=== PATIENT | female | born 1980 | race Caucasian/White ===

== ENCOUNTER 2018-11-12 11:14 | Emergency (ER) | payer OTHER, SELFPAY ==
[2018-11-12 11:14] VITALS: BP 123/92; PULSE 77; RESP 20; TEMP 36.8; O2SAT 100; BMI 36.6
--- NOTE | 2018-11-12 11:18 | DI.RAD.S_ITS ---
PROCEDURE: XR CHEST 1V INDICATIONS: chest pain TECHNIQUE: One view of the chest was acquired. COMPARISON: [facility], CR, XR CHEST 1 VIEW, 09/17/2018, 4:44. FINDINGS: Surgical changes and devices: None. Lungs and pleura: No pleural effusions or pneumothorax. Lungs are clear. Mediastinum: Mediastinal contours appear normal. Heart size is normal. Bones and chest wall: No suspicious bony lesions. Overlying soft tissues appear unremarkable. IMPRESSION: Negative chest. No acute cardiopulmonary process is evident. Dictated by: Otis Pelayo M.D. on 11/12/2018 at 11:14 Approved by: Otis Pelayo M.D. on 11/12/2018 at 11:14
[2018-11-12 11:30] VITALS: BP 115/73; PULSE 74; RESP 20; O2SAT 98
[2018-11-12 11:42] LABS: Add Manual Diff / Slide Review NO; Eosinophils Percent Auto 1.1 % (2-4); Hematocrit 35.2 % (36-46); Hemoglobin 11.5 g/dL (12.0-16.0); Lymphocytes Percent Auto 20.7 % (25-40); Mean Corpuscular HGB Conc 32.6 % (30-36); Monocytes Percent Auto 6.2 % (3-14); Neutrophils Absolute Auto 6200 /uL (1500-7000); Platelet Count 414 X10^3/uL (150-400); Red Blood Cell Count 4.24 X10^6/uL (4.0-5.2); Red Cell Distribution Width 15.7 % (11.6-14.8); White Blood Cell Count 8.7 X10^3/uL (4.5-11.0)
--- NOTE | 2018-11-12 11:47 | ED.CHESTPAIN ---
HPI - Chest Pain General Chief Complaint: Chest Pain Stated Complaint: Abdominal Pain/Chest Pain Time Seen by Provider: 11/12/18 11:42 Source: patient and family () Mode of arrival: EMS Limitations: no limitations History of Present Illness HPI narrative: This is a 38-year-old female who comes in with complaint of chest pain. Patient states she has had chest discomfort for about a month. It seems to always be there, nothing seems to really make it better or worse. She has had some issues with heartburn although she states this feels a little bit different. She was skiing at [facility] a month where they evaluated her. They changed her Prilosec to Nexium and doubled the dose which has helped. Patient states that today she was at her therapy appointment when she noticed that her heart rate was off with her apple watch. Patient states that they looked today and she was concerned because she has had 1 episode of SVT in the past. Patient did not feel similar to when she had the SVT. She denies any other shortness of breath, she has not had any fevers, no cold cough or congestion. She has swelling in her lower extremities but states it is just her sock line it is not anything more extreme than that. She has help felt fatigued for the last couple months but nothing new with the short term. She has not had any nausea or vomiting, no diaphoresis today. She states about 1:00 a.m. this morning she felt gassy and bloated. And day before that she had some very large bowel movements. States that besides the 1 episode of SVT she has not had any other cardiac arrhythmias. She has not followed up with cardiology at any point. She states that she has a family history with an aunt and 1 or 2 cousins who have either SVT or Ycuzd-Vvydggflr-Twcbh. We did discuss that having a definitive diagnosis for Lswoa-Fnozhgdok-Telzv is important and she should follow up with Cardiology with that family history. Related Data Home Medications Medication Instructions Recorded Confirmed dextroamphetamine-amphetamine 15 mg PO TID 11/12/18 11/12/18 duloxetine 40 mg PO DAILY 11/12/18 11/12/18 hydroxyzine pamoate 50 mg PO BEDTIME PRN 11/12/18 11/12/18 lamotrigine 100 mg PO DAILY 11/12/18 11/12/18 oxycodone-acetaminophen 1 tab PO QID PRN 11/12/18 11/12/18 propranolol 60 mg PO QPM 11/12/18 11/12/18 Allergies Allergy/AdvReac Type Severity Reaction Status Date / Time No Known Drug Allergies Allergy Verified 11/12/18 11:50 Review of Systems Review of Systems ROS Unobtainable: All systems reviewed & are unremarkable except as noted in HPI and below Constitutional Denies chills, Denies excessive sweating, Reports fatigue, Denies fever(s), Denies lethargy and Denies weakness ENT Ears, Nose, Mouth, and Throat: Denies nasal congestion Cardiovascular Reports chest pain, Denies chest pain with activity, Denies diaphoresis, Denies syncope, Denies rapid heart rate, Reports edema (mild), Denies irregular heart rhythm, Denies lightheadedness, Denies radiating jaw, neck or arm pain, Denies palpitations, Denies dyspnea, Denies dyspnea on exertion and Denies orthopnea Respiratory Denies change in phlegm color, Denies chest congestion, Denies cough, Denies dyspnea, Denies dyspnea on exertion, Denies stridor and Denies wheezing Gastrointestinal Gastrointestinal: Denies abdominal pain, Denies change in bowel habits, Denies diarrhea, Denies nausea and Denies vomiting Genitourinary Denies urinary frequency, Denies dysuria and Denies urinary urgency Musculoskeletal Denies back pain Neurologic Denies syncope and Denies weakness Endocrine Denies excessive sweating, Reports fatigue and Denies palpitations Allergic/Immunologic Denies wheezing PFSH Medical History SVT (supraventricular tachycardia) (Acute) Social History Smoking Status: Current every day smoker Exam Narrative Exam Narrative: GENERAL: Alert and oriented x three, obese, well-appearing female in mild distress. Patient appears anxious. HEENT: Head normocephalic, atraumatic, EOMI, pupils reactive, face symmetric, moist mucous membranes NECK: Supple, full range of motion CARDIOVASCULAR: Regular rate and rhythm without murmurs, rubs or gallops. No edema bilateral lower extremities. RESPIRATORY: Breath sounds equal bilaterally, no wheezes rales or rhonchi. ABDOMEN: Soft, nontender. Normoactive bowel sounds all 4 quadrants. No guarding or rebound, rigidity, no mass : No CVA tenderness EXTREMITIES: Normal range of motion, no clubbing or edema. Neurovascularly intact NEUROLOGICAL: Cranial nerves II through XII grossly intact. Moving all extremities SKIN: Warm, dry, no petechiae, no rashes or lesions. Initial Vital Signs Initial Vital Signs: Vital Signs Temperature 98.3 F 11/12/18 11:14 Pulse Rate 77 11/12/18 11:14 Respiratory Rate 20 11/12/18 11:14 Blood Pressure 123/92 H 11/12/18 11:14 Pulse Oximetry 100 11/12/18 11:14 Scores HEART Score Heart Score history: Slightly Suspicious Heart Score EKG: Non-Specific repolarization disturbance Heart Score Age: < 45 years old Heart Score risk factors: No known risk factors Heart Score troponin: < or = to normal limit Heart Score Total: 1 Course Orders Ordered: ED Orders 11/12/18 11:18 XR chest 1V Stat EKG-12 Lead Stat 11/12/18 11:30 Complete Blood Count AUTO DIFF Stat Comprehensive Metabolic Panel Stat Lipase Stat Partial Thromboplastin Time Stat Prothrombin Time INR Stat Troponin & CK Cardiac Panel Stat 11/12/18 12:34 Ictotest Urine Stat Urine Microscopic Stat Vital Signs - 8 hr 11/12/18 12:00 11/12/18 12:30 11/12/18 13:00 Pulse Rate 73 73 68 Respiratory Rate 26 H 22 22 Blood Pressure Blood Pressure [Left Arm] 123/84 128/65 120/72 Pulse Oximetry 98 100 99 11/12/18 13:38 Pulse Rate 73 Respiratory Rate 20 Blood Pressure 120/72 Blood Pressure [Left Arm] Pulse Oximetry 100 MDM - Chest Pain Lab Data Attestation: I reviewed the patient's lab results. Result diagrams: 11/12/18 11:30 11/12/18 11:30 Lab Results 11/12/18 11/12/18 11/12/18 Range/Units 11:30 11:30 11:30 WBC 8.7 (4.5-11.0) X10^3/uL RBC 4.24 (4.0-5.2) X10^6/uL Hgb 11.5 L (12.0-16.0) g/dL Hct 35.2 L (36-46) % MCV 83.0 (80-100) fL MCH 27.0 (26-34) PG MCHC 32.6 (30-36) % RDW 15.7 H (11.6-14.8) % Plt Count 414 H (150-400) X10^3/uL Neut % (Auto) 71.0 (50-75) % Lymph % (Auto) 20.7 L (25-40) % [place] % (Auto) 6.2 (3-14) % Eos % (Auto) 1.1 L (2-4) % Baso % (Auto) 1.0 (0-2) % Neut # (Auto) 6200 (8313-7676) /uL PT 9.9 L (10.1-12.7) SECONDS INR 0.9 (0.9-1.3) APTT 27 (26.4-36.2) SECONDS Sodium 137 (137-145) mmol/L Potassium 4.2 (3.4-5.1) mmol/L Chloride 100 (98-107) mmol/L Carbon Dioxide 27 (22-32) mmol/L BUN 11 (7-17) mg/dL Creatinine 0.70 (0.52-1.04) mg/dL Estimated GFR > 60.0 (>60) mL/min BUN/Creatinine Ratio 15.7 (6-22) Glucose 103 H (70-100) mg/dL Calcium 9.1 (8.4-10.2) mg/dL Total Bilirubin 0.4 (0.2-1.3) mg/dL AST 30 (14-36) IU/L ALT 53 H (9-52) IU/L Alkaline Phosphatase 87 (38-126) U/L Total Creatine Kinase 60 (30-135) U/L CK-MB (CK-2) TNP CK-MB (CK-2) Rel Index TNP Troponin I < 0.012 (0.01-0.034) ng/mL Total Protein 7.1 (6.3-8.2) g/dL Albumin 4.3 (3.5-5.0) g/dL Globulin 2.8 (1.7-4.1) g/dL Albumin/Globulin Ratio 1.5 (1.0-2.8) Lipase 87 (23-300) U/L Urine Ictotest (Negative) Urine RBC (0-5/HPF) Urine WBC (0-5/HPF) Ur Squamous Epith Cells Urine Bacteria (None) Ur Culture Indicated? Micro UA Comment 11/12/18 Range/Units 12:34 WBC (4.5-11.0) X10^3/uL RBC (4.0-5.2) X10^6/uL Hgb (12.0-16.0) g/dL Hct (36-46) % MCV (80-100) fL MCH (26-34) PG MCHC (30-36) % RDW (11.6-14.8) % Plt Count (150-400) X10^3/uL Neut % (Auto) (50-75) % Lymph % (Auto) (25-40) % [place] % (Auto) (3-14) % Eos % (Auto) (2-4) % Baso % (Auto) (0-2) % Neut # (Auto) (2092-6657) /uL PT (10.1-12.7) SECONDS INR (0.9-1.3) APTT (26.4-36.2) SECONDS Sodium (137-145) mmol/L Potassium (3.4-5.1) mmol/L Chloride (98-107) mmol/L Carbon Dioxide (22-32) mmol/L BUN (7-17) mg/dL Creatinine (0.52-1.04) mg/dL Estimated GFR (>60) mL/min BUN/Creatinine Ratio (6-22) Glucose (70-100) mg/dL Calcium (8.4-10.2) mg/dL Total Bilirubin (0.2-1.3) mg/dL AST (14-36) IU/L ALT (9-52) IU/L Alkaline Phosphatase (38-126) U/L Total Creatine Kinase (30-135) U/L CK-MB (CK-2) CK-MB (CK-2) Rel Index Troponin I (0.01-0.034) ng/mL Total Protein (6.3-8.2) g/dL Albumin (3.5-5.0) g/dL Globulin (1.7-4.1) g/dL Albumin/Globulin Ratio (1.0-2.8) Lipase (23-300) U/L Urine Ictotest Negative (Negative) Urine RBC 0-1/hpf (0-5/HPF) Urine WBC 0-1/hpf (0-5/HPF) Ur Squamous Epith Cells 1-5 /hpf Urine Bacteria Moderate (10-30) H (None) Ur Culture Indicated? Cult not indicated Micro UA Comment Not Reportable Point of Care Testing Test Results Negative Urine Dip Bedside Urine Glucose Negative Bedside Urine Bilirubin + 1 Bedside Urine Ketone - Negative Urine Specific [place] 1.030 Bedside Urine Occult Blood - Negative Bedside Urine pH 6.0 Bedside Urine Protein +/- 15 Bedside Urine Urobilinogen - Negative Bedside Urine Nitrite - Negative Bedside Urine Leukocytes - Negative Esterase Imaging Data Chest x-ray: Radiologist's impression: [address] [address] XRay Report Signed Patient: Kavitha Ruiz MR#: [id number] : 1980 Acct:[id number] Age/Sex: 38 / F Date of Service: 11/12/18 Loc: ED Accession Number: [id number] Procedure: XR chest 1V Ordering Provider: Sarah Mcelroy D.O. PROCEDURE: XR CHEST 1V INDICATIONS: chest pain TECHNIQUE: One view of the chest was acquired. COMPARISON: [facility], , XR CHEST 1 VIEW, 09/17/2018, 4:44. FINDINGS: Surgical changes and devices: None. Lungs and pleura: No pleural effusions or pneumothorax. Lungs are clear. Mediastinum: Mediastinal contours appear normal. Heart size is normal. Bones and chest wall: No suspicious bony lesions. Overlying soft tissues appear unremarkable. IMPRESSION: Negative chest. No acute cardiopulmonary process is evident. Dictated by: Otis Pelayo M.D. on 11/12/2018 at 11:14 Approved by: Otis Pelayo M.D. on 11/12/2018 at 11:14 ECG Data Attestation: I personally reviewed and interpreted this ECG as follows: Prior ECG tracings: not available for review ([facility] sent a written report. ) MDM Narrative Medical decision making narrative: Time patient has description of chest pain that has been going on for a prolonged period of time. Her most recent episode has been constant without any resolution and she has negative EKG and troponin she has had significant issues with heartburn but states that has actually improved and has increased her Nexium. We did discuss she has a history of SVT. I reviewed the rhythm from her apple watch on her phone. It appears to be similar 20 artifact there does not appear to be any significant arrhythmias patient has had a normal rhythm here with telemetry as well as on her EKG. She is not sure but thinks her family members may have some history of Eyeyv-Ffdiyirfl-Wisdv. EKG today does not show any changes consistent with this but did discuss that these are 2 very different Um electrical conduction issues and she should follow up with a geophysics professor to get a definitive diagnosis. We discussed the reasons and patient states that she will follow up. Plan for outpatient follow-up is patient is low risk with her heart score and her description of signs and symptoms makes my suspicion for cardiac cause is low. Discharge Plan Departure Patient Disposition: Home Clinical Impression: Chest pain Discharge Date/Time: 11/12/18 13:39 Interventions: ED Discharge Assessment Last Done: 11/12/18 13:38 Instructions: DI for Atypical Chest Pain Activity Restrictions/Additional Instructions: Follow up with cardiology regarding your past history of SVT and family history of Oerx-Mqnqqkyft-Brktj. Call to make an appointment. Continue your home medications as prescribed. Return to ER for new or worsening symptoms, shortness of breath, persistent vomiting, passing out, fast persistent heart beat or other new or concerning symptoms. Prescriptions: No Action hydroxyzine pamoate 50 mg capsule 50 mg PO BEDTIME PRN (Reason: unknown) RF: 0 dextroamphetamine-amphetamine 15 mg tablet 15 mg PO TID RF: 0 oxycodone-acetaminophen 7.5-325 mg tablet 1 tab PO QID PRN (Reason: pain) RF: 0 propranolol 20 mg tablet 60 mg PO QPM RF: 0 lamotrigine 100 mg tablet 100 mg PO DAILY RF: 0 duloxetine 40 mg capsule,delayed release(DR/EC) 40 mg PO DAILY RF: 0 Referrals: Diana Low MD [Physician] -
[2018-11-12 11:48] LABS: INR 0.9 (0.9-1.3); Prothrombin Time 9.9 SECONDS (10.1-12.7)
[2018-11-12 11:49] LABS: PTT Partial Thromboplastin Tim 27 SECONDS (26.4-36.2)
[2018-11-12 11:50] LABS: Alanine Aminotransferase 53 IU/L (9-52); Albumin 4.3 g/dL (3.5-5.0); Albumin Globulin Ratio 1.5 (1.0-2.8); Alkaline Phosphatase 87 U/L (38-126); Aspartate Aminotransferase 30 IU/L (14-36); BUN Creatinine Ratio 15.7 (6-22); Bilirubin Total 0.4 mg/dL (0.2-1.3); Blood Urea Nitrogen 11 mg/dL (7-17); Calcium 9.1 mg/dL (8.4-10.2); Carbon Dioxide 27 mmol/L (22-32); Chloride 100 mmol/L (98-107); Creatine Kinase 60 U/L (30-135); Estimated Glomerular Filt Rate > 60.0 mL/min (>60); Globulin 2.8 g/dL (1.7-4.1); Glucose 103 mg/dL (70-100); HEMOLYSIS < 15 (0-50); Lipase 87 U/L (23-300); Potassium 4.2 mmol/L (3.4-5.1); Sodium 137 mmol/L (137-145); Total Protein 7.1 g/dL (6.3-8.2)
[2018-11-12 12:00] VITALS: BP 123/84; PULSE 73; RESP 26; O2SAT 98
[2018-11-12 12:04] LABS: Troponin I < 0.012 ng/mL (0.01-0.034)
--- NOTE | 2018-11-12 12:13 | ED_ITS ---
HPI - Chest Pain General Chief Complaint: Chest Pain Stated Complaint: Abdominal Pain/Chest Pain Time Seen by Provider: 11/12/18 11:42 Source: patient and family () Mode of arrival: EMS Limitations: no limitations History of Present Illness HPI narrative: This is a 38-year-old female who comes in with complaint of chest pain. Patient states she has had chest discomfort for about a month. It seems to always be there, nothing seems to really make it better or worse. She has had some issues with heartburn although she states this feels a little bit different. She was skiing at [facility] a month where they evaluated her. They changed her Prilosec to Nexium and doubled the dose which has helped. Patient states that today she was at her therapy appointment when she noticed that her heart rate was off with her apple watch. Patient states that they looked today and she was concerned because she has had 1 episode of SVT in the past. Patient did not feel similar to when she had the SVT. She denies any other shortness of breath, she has not had any fevers, no cold cough or congestion. She has swelling in her lower extremities but states it is just her sock line it is not anything more extreme than that. She has help felt fatigued for the last couple months but nothing new with the short term. She has not had any nausea or vomiting, no diaphoresis today. She states about 1: 00 a.m. this morning she felt gassy and bloated. And day before that she had some very large bowel movements. States that besides the 1 episode of SVT she has not had any other cardiac arrhythmias. She has not followed up with cardiology at any point. She states that she has a family history with an aunt and 1 or 2 cousins who have either SVT or Rdneh-Rhzzpipkf-Ykcsv. We did discuss that having a definitive diagnosis for Jzkqc-[id number]-Jvjka is important and she should follow up with Cardiology with that family history. Related Data Home Medications Medication Instructions Recorded Confirmed dextroamphetamine-amphetamine 15 mg PO TID 11/12/18 11/12/18 duloxetine 40 mg PO DAILY 11/12/18 11/12/18 hydroxyzine pamoate 50 mg PO BEDTIME PRN 11/12/18 11/12/18 lamotrigine 100 mg PO DAILY 11/12/18 11/12/18 oxycodone-acetaminophen 1 tab PO QID PRN 11/12/18 11/12/18 propranolol 60 mg PO QPM 11/12/18 11/12/18 Allergies Allergy/AdvReac Type Severity Reaction Status Date / Time No Known Drug Allergies Allergy Verified 11/12/18 11:50 Review of Systems Review of Systems ROS Unobtainable: All systems reviewed & are unremarkable except as noted in HPI and below Constitutional Denies chills, Denies excessive sweating, Reports fatigue, Denies fever(s), Denies lethargy and Denies weakness ENT Ears, Nose, Mouth, and Throat: Denies nasal congestion Cardiovascular Reports chest pain, Denies chest pain with activity, Denies diaphoresis, Denies syncope, Denies rapid heart rate, Reports edema (mild), Denies irregular heart rhythm, Denies lightheadedness, Denies radiating jaw, neck or arm pain, Denies palpitations, Denies dyspnea, Denies dyspnea on exertion and Denies orthopnea Respiratory Denies change in phlegm color, Denies chest congestion, Denies cough, Denies dyspnea, Denies dyspnea on exertion, Denies stridor and Denies wheezing Gastrointestinal Gastrointestinal: Denies abdominal pain, Denies change in bowel habits, Denies diarrhea, Denies nausea and Denies vomiting Genitourinary Denies urinary frequency, Denies dysuria and Denies urinary urgency Musculoskeletal Denies back pain Neurologic Denies syncope and Denies weakness Endocrine Denies excessive sweating, Reports fatigue and Denies palpitations Allergic/Immunologic Denies wheezing PFSH Medical History SVT (supraventricular tachycardia) (Acute) Social History Smoking Status: Current every day smoker Exam Narrative Exam Narrative: GENERAL: Alert and oriented x three, obese, well-appearing female in mild distress. Patient appears anxious. HEENT: Head normocephalic, atraumatic, EOMI, pupils reactive, face symmetric, moist mucous membranes NECK: Supple, full range of motion CARDIOVASCULAR: Regular rate and rhythm without murmurs, rubs or gallops. No edema bilateral lower extremities. RESPIRATORY: Breath sounds equal bilaterally, no wheezes rales or rhonchi. ABDOMEN: Soft, nontender. Normoactive bowel sounds all 4 quadrants. No guarding or rebound, rigidity, no mass : No CVA tenderness EXTREMITIES: Normal range of motion, no clubbing or edema. Neurovascularly intact NEUROLOGICAL: Cranial nerves II through XII grossly intact. Moving all extremities SKIN: Warm, dry, no petechiae, no rashes or lesions. Initial Vital Signs Initial Vital Signs: Vital Signs Temperature 98.3 F 11/12/18 11:14 Pulse Rate 77 11/12/18 11:14 Respiratory Rate 20 11/12/18 11:14 Blood Pressure 123/92 H 11/12/18 11:14 Pulse Oximetry 100 11/12/18 11:14 Scores HEART Score Heart Score history: Slightly Suspicious Heart Score EKG: Non-Specific repolarization disturbance Heart Score Age: < 45 years old Heart Score risk factors: No known risk factors Heart Score troponin: < or = to normal limit Heart Score Total: 1 Course Orders Ordered: ED Orders 11/12/18 11:18 XR chest 1V Stat EKG-12 Lead Stat 11/12/18 11:30 Complete Blood Count AUTO DIFF Stat Comprehensive Metabolic Panel Stat Lipase Stat Partial Thromboplastin Time Stat Prothrombin Time INR Stat Troponin & CK Cardiac Panel Stat 11/12/18 12:34 Ictotest Urine Stat Urine Microscopic Stat Vital Signs - 8 hr 11/12/18 12:00 11/12/18 12:30 11/12/18 13:00 Pulse Rate 73 73 68 Respiratory Rate 26 H 22 22 Blood Pressure Blood Pressure [Left Arm] 123/84 128/65 120/72 Pulse Oximetry 98 100 99 11/12/18 13:38 Pulse Rate 73 Respiratory Rate 20 Blood Pressure 120/72 Blood Pressure [Left Arm] Pulse Oximetry 100 MDM - Chest Pain Lab Data Attestation: I reviewed the patient's lab results. Result diagrams: 11/12/18 11:30 11/12/18 11:30 Lab Results 11/12/18 11/12/18 11/12/18 Range/Units 11:30 11:30 11:30 WBC 8.7 (4.5-11.0) X10^3/uL RBC 4.24 (4.0-5.2) X10^6/uL Hgb 11.5 L (12.0-16.0) g/dL Hct 35.2 L (36-46) % MCV 83.0 (80-100) fL MCH 27.0 (26-34) PG MCHC 32.6 (30-36) % RDW 15.7 H (11.6-14.8) % Plt Count 414 H (150-400) X10^3/uL Neut % (Auto) 71.0 (50-75) % Lymph % (Auto) 20.7 L (25-40) % [place] % (Auto) 6.2 (3-14) % Eos % (Auto) 1.1 L (2-4) % Baso % (Auto) 1.0 (0-2) % Neut # (Auto) 6200 (9493-6590) /uL PT 9.9 L (10.1-12.7) SECONDS INR 0.9 (0.9-1.3) APTT 27 (26.4-36.2) SECONDS Sodium 137 (137-145) mmol/L Potassium 4.2 (3.4-5.1) mmol/L Chloride 100 (98-107) mmol/L Carbon Dioxide 27 (22-32) mmol/L BUN 11 (7-17) mg/dL Creatinine 0.70 (0.52-1.04) mg/dL Estimated GFR > 60.0 (>60) mL/min BUN/Creatinine Ratio 15.7 (6-22) Glucose 103 H (70-100) mg/dL Calcium 9.1 (8.4-10.2) mg/dL Total Bilirubin 0.4 (0.2-1.3) mg/dL AST 30 (14-36) IU/L ALT 53 H (9-52) IU/L Alkaline Phosphatase 87 (38-126) U/L Total Creatine Kinase 60 (30-135) U/L CK-MB (CK-2) TNP CK-MB (CK-2) Rel Index TNP Troponin I < 0.012 (0.01-0.034) ng/mL Total Protein 7.1 (6.3-8.2) g/dL Albumin 4.3 (3.5-5.0) g/dL Globulin 2.8 (1.7-4.1) g/dL Albumin/Globulin Ratio 1.5 (1.0-2.8) Lipase 87 (23-300) U/L Urine Ictotest (Negative) Urine RBC (0-5/HPF) Urine WBC (0-5/HPF) Ur Squamous Epith Cells Urine Bacteria (None) Ur Culture Indicated? Micro UA Comment 11/12/18 Range/Units 12:34 WBC (4.5-11.0) X10^3/uL RBC (4.0-5.2) X10^6/uL Hgb (12.0-16.0) g/dL Hct (36-46) % MCV (80-100) fL MCH (26-34) PG MCHC (30-36) % RDW (11.6-14.8) % Plt Count (150-400) X10^3/uL Neut % (Auto) (50-75) % Lymph % (Auto) (25-40) % [place] % (Auto) (3-14) % Eos % (Auto) (2-4) % Baso % (Auto) (0-2) % Neut # (Auto) (6581-3635) /uL PT (10.1-12.7) SECONDS INR (0.9-1.3) APTT (26.4-36.2) SECONDS Sodium (137-145) mmol/L Potassium (3.4-5.1) mmol/L Chloride (98-107) mmol/L Carbon Dioxide (22-32) mmol/L BUN (7-17) mg/dL Creatinine (0.52-1.04) mg/dL Estimated GFR (>60) mL/min BUN/Creatinine Ratio (6-22) Glucose (70-100) mg/dL Calcium (8.4-10.2) mg/dL Total Bilirubin (0.2-1.3) mg/dL AST (14-36) IU/L ALT (9-52) IU/L Alkaline Phosphatase (38-126) U/L Total Creatine Kinase (30-135) U/L CK-MB (CK-2) CK-MB (CK-2) Rel Index Troponin I (0.01-0.034) ng/mL Total Protein (6.3-8.2) g/dL Albumin (3.5-5.0) g/dL Globulin (1.7-4.1) g/dL Albumin/Globulin Ratio (1.0-2.8) Lipase (23-300) U/L Urine Ictotest Negative (Negative) Urine RBC 0-1/hpf (0-5/HPF) Urine WBC 0-1/hpf (0-5/HPF) Ur Squamous Epith Cells 1-5 /hpf Urine Bacteria Moderate (10-30) H (None) Ur Culture Indicated? Cult not indicated Micro UA Comment Not Reportable Point of Care Testing Test Results Negative Urine Dip Bedside Urine Glucose Negative Bedside Urine Bilirubin + 1 Bedside Urine Ketone - Negative Urine Specific [place] 1.030 Bedside Urine Occult Blood - Negative Bedside Urine pH 6.0 Bedside Urine Protein +/- 15 Bedside Urine Urobilinogen - Negative Bedside Urine Nitrite - Negative Bedside Urine Leukocytes - Negative Esterase Imaging Data Chest x-ray: Radiologist's impression: [address] [address] XRay Report Signed Patient: Kavitha Ruiz MR#: [id number] : 1980 Acct:[id number] Age/Sex: 38 / F Date of Service: 11/12/18 Loc: ED Accession Number: [id number] Procedure: XR chest 1V Ordering Provider: Sarah Mcelroy D.O. PROCEDURE: XR CHEST 1V INDICATIONS: chest pain TECHNIQUE: One view of the chest was acquired. COMPARISON: [facility], , XR CHEST 1 VIEW, 09/17/2018, 4:44. FINDINGS: Surgical changes and devices: None. Lungs and pleura: No pleural effusions or pneumothorax. Lungs are clear. Mediastinum: Mediastinal contours appear normal. Heart size is normal. Bones and chest wall: No suspicious bony lesions. Overlying soft tissues appear unremarkable. IMPRESSION: Negative chest. No acute cardiopulmonary process is evident. Dictated by: Otis Pelayo M.D. on 11/12/2018 at 11:14 Approved by: Otis Pelayo M.D. on 11/12/2018 at 11:14 ECG Data Attestation: I personally reviewed and interpreted this ECG as follows: Prior ECG tracings: not available for review ([facility] sent a written report. ) MDM Narrative Medical decision making narrative: Time patient has description of chest pain that has been going on for a prolonged period of time. Her most recent episode has been constant without any resolution and she has negative EKG and troponin she has had significant issues with heartburn but states that has actually improved and has increased her Nexium. We did discuss she has a history of SVT. I reviewed the rhythm from her apple watch on her phone. It appears to be similar 20 artifact there does not appear to be any significant arrhythmias patient has had a normal rhythm here with telemetry as well as on her EKG. She is not sure but thinks her family members may have some history of Artur- Parkinson-White. EKG today does not show any changes consistent with this but did discuss that these are 2 very different Um electrical conduction issues and she should follow up with a furnace door tender to get a definitive diagnosis. We discussed the reasons and patient states that she will follow up. Plan for outpatient follow-up is patient is low risk with her heart score and her description of signs and symptoms makes my suspicion for cardiac cause is low. Discharge Plan Departure Patient Disposition: Home Clinical Impression: Chest pain Discharge Date/Time: 11/12/18 13:39 Interventions: ED Discharge Assessment Last Done: 11/12/18 13:38 Instructions: DI for Atypical Chest Pain Activity Restrictions/Additional Instructions: Follow up with cardiology regarding your past history of SVT and family history of [id number]-[id number]. Call to make an appointment. Continue your home medications as prescribed. Return to ER for new or worsening symptoms, shortness of breath, persistent vomiting, passing out, fast persistent heart beat or other new or concerning symptoms. Prescriptions: No Action hydroxyzine pamoate 50 mg capsule 50 mg PO BEDTIME PRN (Reason: unknown) RF: 0 dextroamphetamine-amphetamine 15 mg tablet 15 mg PO TID RF: 0 oxycodone-acetaminophen 7.5-325 mg tablet 1 tab PO QID PRN (Reason: pain) RF: 0 propranolol 20 mg tablet 60 mg PO QPM RF: 0 lamotrigine 100 mg tablet 100 mg PO DAILY RF: 0 duloxetine 40 mg capsule,delayed release(DR/EC) 40 mg PO DAILY RF: 0 Referrals: Diana Low MD [Physician] -
[2018-11-12 12:30] VITALS: BP 128/65; PULSE 73; RESP 22; O2SAT 100
[2018-11-12 13:00] VITALS: BP 120/72; PULSE 68; RESP 22; O2SAT 99
[2018-11-12 13:27] LABS: Ictotest Urine Negative (Negative)
[2018-11-12 13:28] LABS: Bacteria Urine Moderate (10-30); Culture Indicated Urine Cult Not Indicated; RBC Urine 0-1/HPF (0-5/HPF); Squamous Epithelial Cell Urine 1-5 /HPF; WBC Urine 0-1/HPF (0-5/HPF)
[2018-11-12 13:38] VITALS: BP 120/72; PULSE 73; RESP 20; O2SAT 100
== END 2018-11-12 13:39 | disposition home or self-care (01) ==
PROVIDERS: Emergency Provider Emergency Medicine
DX: R07.9 Chest pain, unspecified (principal)
CPT/HCPCS: 36415; 71045; 80053; 81003; 81015; 81025; 82550; 83690; 84484; 85025; 85610; 85730; 93005; 99283; 99285

== ENCOUNTER 2019-02-16 19:31 | Emergency (ER) | payer OTHER, SELFPAY ==
[2019-02-16 19:40] VITALS: BP 136/80; PULSE 80; RESP 14; TEMP 36.7; O2SAT 100
--- NOTE | 2019-02-16 19:46 | DI.RAD.S_ITS ---
PROCEDURE: XR CHEST 2V INDICATIONS: chest pain TECHNIQUE: 2 views of the chest were acquired. COMPARISON: [facility], CR, XR CHEST 1V, 11/12/2018, 11:59. FINDINGS: Surgical changes and devices: None. Lungs and pleura: Lungs are clear. No pleural effusions or pneumothorax. Mediastinum: Mediastinal contours are normal. Heart size is normal. Bones and chest wall: No suspicious bony abnormalities. Soft tissues appear unremarkable. IMPRESSION: No acute cardiopulmonary disease process. Dictated by: Ailyn Youngblood MD, PhD on 02/16/2019 at 20:22 Approved by: Ailyn Youngblood MD, PhD on 02/16/2019 at 20:23
[2019-02-16 20:18] LABS: Alanine Aminotransferase 101 IU/L (9-52); Albumin 4.5 g/dL (3.5-5.0); Albumin Globulin Ratio 1.7 (1.0-2.8); Alkaline Phosphatase 91 U/L (38-126); Aspartate Aminotransferase 53 IU/L (14-36); Bilirubin Total 0.3 mg/dL (0.2-1.3); Blood Urea Nitrogen 14 mg/dL (7-17); Calcium 9.5 mg/dL (8.4-10.2); Carbon Dioxide 30 mmol/L (22-32); Chloride 100 mmol/L (98-107); Creatine Kinase 167 U/L (30-135); Estimated Glomerular Filt Rate > 60.0 mL/min (>60); Globulin 2.7 g/dL (1.7-4.1); Glucose 118 mg/dL (70-100); HEMOLYSIS < 15 (0-50); INR 0.9 (0.9-1.3); Lipase 158 U/L (23-300); Potassium 3.8 mmol/L (3.4-5.1); Prothrombin Time 10.3 SECONDS (10.1-12.7); Sodium 141 mmol/L (137-145); Total Protein 7.2 g/dL (6.3-8.2)
[2019-02-16 20:21] LABS: PTT Partial Thromboplastin Tim 30 SECONDS (26.4-36.2)
[2019-02-16 20:29] LABS: Troponin I < 0.012 ng/mL (0.01-0.034)
[2019-02-16 20:32] LABS: Add Manual Diff / Slide Review NO; Basophils Absolute Auto 100 /uL (0-100); Basophils Percent Auto 0.6 % (0-2); Eosinophils Absolute Auto 100 /uL (0-450); Eosinophils Percent Auto 1.1 % (2-4); Hematocrit 35.3 % (36-46); Hemoglobin 11.4 g/dL (12.0-16.0); Lymphocytes Absolute Auto 1800 /uL (1100-4500); Lymphocytes Percent Auto 16.3 % (25-40); Mean Corpuscular HGB Conc 32.2 % (30-36); Mean Corpuscular Hemoglobin 26.3 PG (26-34); Mean Corpuscular Volume 81.9 fL (80-100); Monocytes Absolute Auto 700 /uL (0-900); Monocytes Percent Auto 6.6 % (3-14); Neutrophils Absolute Auto 8500 /uL (1500-7000); Neutrophils Percent Auto 75.4 % (50-75); Platelet Count 426 X10^3/uL (150-400); Red Blood Cell Count 4.31 X10^6/uL (4.0-5.2); Red Cell Distribution Width 17.7 % (11.6-14.8); White Blood Cell Count 11.3 X10^3/uL (4.5-11.0)
[2019-02-16 20:33] LABS: CKMB % Relative Index 1.3 % (1.5-5.0); Creatine Kinase MB 2.17 ng/mL (<2.37)
--- NOTE | 2019-02-16 22:13 | ED_ITS ---
HPI - Arrhythmia/Palpitations General Chief Complaint: Arrhythmia/Palpitations Stated Complaint: HEART RATE HIGH Time Seen by Provider: 02/16/19 22:12 Source: patient Mode of arrival: ambulatory Limitations: no limitations History of Present Illness HPI narrative: The patient comes in with complaints of rapid heart rate earlier today. Her heart rate was document consistently around the 115 range. She had no associated dyspnea, weakness or chest pain. she does have a history of PSVT in 2017. She has not had any insulin since. She is asymptomatic of the tachycardia upon arrival. She has no known cardiac history other than the PSVT. She describes significant stress. She says she has a diagnosis of borderline personality disorder, but describes what may also be PTSD. She has tachycardia periodic with. She takes propranolol as needed. She is not on medications specifically for hypertension. She also has significant insomnia. She takes sleeping pills as needed. She describes having a fair amount of caffeine lately. She has no recent illness. She has no respiratory difficulties. She is having no GI symptoms. she feels well now. Related Data Home Medications Medication Instructions Recorded Confirmed dextroamphetamine-amphetamine 15 mg PO TID 11/12/18 11/12/18 duloxetine 40 mg PO DAILY 11/12/18 11/12/18 hydroxyzine pamoate 50 mg PO BEDTIME PRN 11/12/18 11/12/18 lamotrigine 100 mg PO DAILY 11/12/18 11/12/18 oxycodone-acetaminophen 1 tab PO QID PRN 11/12/18 11/12/18 propranolol 60 mg PO QPM 11/12/18 11/12/18 Allergies Allergy/AdvReac Type Severity Reaction Status Date / Time No Known Drug Allergies Allergy Verified 11/12/18 11:50 Review of Systems Review of Systems ROS Unobtainable: All systems reviewed & are unremarkable except as noted in HPI and below Constitutional Denies chills, Denies fever(s), Denies lethargy and Denies weakness Cardiovascular Denies lightheadedness, Denies palpitations, Denies dyspnea and Denies orthopnea Comments: Tachycardia. Respiratory Denies cough, Denies dyspnea and Denies wheezing Gastrointestinal Gastrointestinal: Denies abdominal pain, Denies change in bowel habits, Denies diarrhea, Denies nausea and Denies vomiting Musculoskeletal Denies back pain, Denies joint swelling, Denies numbness and Denies tingling Comments: No lower extremity swelling. Integumentary/Breasts Denies rash Neurologic Denies numbness, Denies tingling and Denies weakness Psychiatric Reports anxiety Comments: Insomnia Endocrine Denies palpitations Allergic/Immunologic Denies wheezing [facility] Medical History (Updated 02/16/19 @ 22:35 by Jaison Estevez MD) Borderline personality disorder (Acute) SVT (supraventricular tachycardia) (Acute) Surgical History (Updated 02/16/19 @ 22:36 by Jaison Estevez MD) No pertinent past surgical history (Acute) Social History Smoking Status: Current every day smoker Social History Smoking Status: Current every day smoker Exam Initial Vital Signs Initial Vital Signs: Vital Signs Temperature 98.1 F 02/16/19 19:40 Pulse Rate 80 02/16/19 19:40 Respiratory Rate 14 02/16/19 19:40 Blood Pressure 136/80 02/16/19 19:40 Pulse Oximetry 100 02/16/19 19:40 Const General: cooperative and well developed Nutritional Appearance: well nourished Orientation: alert, awake and oriented x3 Neck Neck: normal visual inspection, trachea midline, No lymphadenopathy and No JVD Chest Chest: normal inspection of the chest Resp Effort & Inspection: normal respiratory effort, able to speak in complete sentences, no respiratory distress and no use of accessory muscles Auscultation: clear to auscultation bilaterally, no rales, no rhonchi and no wheezes Cardio Rate: regular rate Rhythm: regular rhythm Heart Sounds: no click, no gallops, no murmurs and no rubs Pulses: normal peripheral pulses GI Inspection: non-distended Palpation: soft, no hepatosplenomegaly and No tender Auscultation: normal bowel sounds Back/Spine/Pelvis Cervical Spine: cervical ROM normal Thoracic/Lumbar Spine: thoracic and lumbar spine normal to inspection Skin General: no rashes or lesions noted Neuro General: alert, oriented x3, gait normal and no focal motor deficits Speech: speech normal Extrem General: No pedal edema Other: No calf tenderness Psych Appearance: well kempt Mental Status: mental status grossly normal Attitude: cooperative Thought Content: normal and suicidality Judgment: judgment good Course Course Narrative: The patient complained of tachycardia or ear. She took propranolol at home. She has a normal EKG and a normal cardiovascular exam now. Lab evaluations normal. it is suggested she follow up with her regular doctor, as well as following up with a cardiology consult that is in place. Orders Ordered: ED Orders 02/16/19 19:46 XR chest 2V Stat EKG-12 Lead Stat 02/16/19 20:02 Complete Blood Count AUTO DIFF Stat Comprehensive Metabolic Panel Stat Lipase Stat Partial Thromboplastin Time Stat Prothrombin Time INR Stat Troponin & CK Cardiac Panel Stat Vital Signs - 8 hr 02/16/19 19:40 02/16/19 22:16 Temperature 98.1 F 98.3 F Pulse Rate 80 71 Respiratory Rate 14 16 Blood Pressure 136/80 Blood Pressure [Left Arm] 118/77 Pulse Oximetry 100 99 MDM - Arrhythmia/Palpitations Lab Data Result diagrams: 02/16/19 20:02 02/16/19 20:02 Lab Results 02/16/19 02/16/19 02/16/19 Range/Units 20:02 20:02 20:02 WBC 11.3 H (4.5-11.0) X10^3/uL RBC 4.31 (4.0-5.2) X10^6/uL Hgb 11.4 L (12.0-16.0) g/dL Hct 35.3 L (36-46) % MCV 81.9 (80-100) fL MCH 26.3 (26-34) PG MCHC 32.2 (30-36) % RDW 17.7 H (11.6-14.8) % Plt Count 426 H (150-400) X10^3/uL Neut % (Auto) 75.4 H (50-75) % Lymph % (Auto) 16.3 L (25-40) % [place] % (Auto) 6.6 (3-14) % Eos % (Auto) 1.1 L (2-4) % Baso % (Auto) 0.6 (0-2) % Neut # (Auto) 8500 H (2343-0002) /uL Lymph # (Auto) 1800 (5096-4315) /uL [place] # (Auto) 700 (0-900) /uL Eos # (Auto) 100 (0-450) /uL Baso # (Auto) 100 (0-100) /uL PT 10.3 (10.1-12.7) SECONDS INR 0.9 (0.9-1.3) APTT 30 D (26.4-36.2) SECONDS Sodium 141 (137-145) mmol/L Potassium 3.8 (3.4-5.1) mmol/L Chloride 100 (98-107) mmol/L Carbon Dioxide 30 (22-32) mmol/L BUN 14 (7-17) mg/dL Creatinine 0.70 (0.52-1.04) mg/dL Estimated GFR > 60.0 (>60) mL/min BUN/Creatinine Ratio 20.0 (6-22) Glucose 118 H (70-100) mg/dL Calcium 9.5 (8.4-10.2) mg/dL Total Bilirubin 0.3 (0.2-1.3) mg/dL AST 53 H (14-36) IU/L ALT 101 H (9-52) IU/L Alkaline Phosphatase 91 (38-126) U/L Total Creatine Kinase 167 H (30-135) U/L CK-MB (CK-2) 2.17 (<2.37) ng/mL CK-MB (CK-2) Rel Index 1.3 L (1.5-5.0) % Troponin I < 0.012 (0.01-0.034) ng/mL Total Protein 7.2 (6.3-8.2) g/dL Albumin 4.5 (3.5-5.0) g/dL Globulin 2.7 (1.7-4.1) g/dL Albumin/Globulin Ratio 1.7 (1.0-2.8) Lipase 158 (23-300) U/L Point of Care Testing Test Results Negative Urine Dip Bedside Urine Glucose Negative Bedside Urine Bilirubin - Negative Bedside Urine Ketone - Negative Urine Specific [place] 1.010 Bedside Urine Occult Blood - Negative Bedside Urine pH 6.0 Bedside Urine Protein - Negative Bedside Urine Urobilinogen - Negative Bedside Urine Nitrite - Negative Bedside Urine Leukocytes - Negative Esterase ECG Data Attestation: I personally reviewed and interpreted this ECG as follows: (Normal sinus rhythm rate 80 beats per minute. no ectopy. No acute ST T wave changes. Normal intervals. Normal study.) Discharge Plan Departure Patient Disposition: Home Clinical Impression: Tachycardia, Stress Instructions: DI for Tachycardia Activity Restrictions/Additional Instructions: I know you have a history of SVT, but the elevated heart rate here describing is more likely due to the stress that you are describing. Continue with her current medications. Avoid caffeine and try to rest regularly at night. I would recommend following up with doctor to further discuss insomnia, stress and anxiety. Follow-up with cardiology as planned. Return to the ER as needed. Prescriptions: No Action hydroxyzine pamoate 50 mg capsule 50 mg PO BEDTIME PRN (Reason: unknown) RF: 0 dextroamphetamine-amphetamine 15 mg tablet 15 mg PO TID RF: 0 oxycodone-acetaminophen 7.5-325 mg tablet 1 tab PO QID PRN (Reason: pain) RF: 0 propranolol 20 mg tablet 60 mg PO QPM RF: 0 lamotrigine 100 mg tablet 100 mg PO DAILY RF: 0 duloxetine 40 mg capsule,delayed release(DR/EC) 40 mg PO DAILY RF: 0
[2019-02-16 22:16] VITALS: BP 118/77; PULSE 71; RESP 16; TEMP 36.8; O2SAT 99
== END 2019-02-16 22:41 | disposition home or self-care (01) ==
PROVIDERS: Emergency Provider Emergency Medicine
DX: R00.0 Tachycardia, unspecified (principal); F43.9 Reaction to severe stress, unspecified
CPT/HCPCS: 36415; 71046; 80053; 81003; 81025; 82550; 82553; 83690; 84484; 85025; 85610; 85730; 93005; 93010; 99282; 99285

== ENCOUNTER → 2020-10-03 11:51 | Outpatient (CLI) | payer OTHER, SELFPAY ==
[2020-10-03 13:07] LABS: COVID19 -Nasal RAPID Negative (Negative)
== END ==
PROVIDERS: PCP Family Medicine; Visit Provider Surgery
DX: Z01.812 Encounter for preprocedural laboratory examination (principal); Z11.59 Encounter for screening for other viral diseases
CPT/HCPCS: 87635; C9803

== ENCOUNTER 2020-10-04 16:01 | Day surgery (SDC) | payer OTHER, SELFPAY ==
[2020-10-04] VITALS (9 sets, daily range): BP systolic 140–153; BP diastolic 76–92; PULSE 94–106; RESP 14–20; TEMP 35.8–36.7; O2SAT 95–97; BMI 38.2
--- NOTE | 2020-10-04 | PATH_ITS ---
[facility] Accession Number: [id number] . 01 Material submitted: . neck - SOFT TISSUE MASS OF NECK . 01 Clinical history: . EXCISION OF SOFT TISSUE MASS NECK . 01 Diagnosis: Soft Tissue, Neck, Resection: Lipoma with focal degenerative changes. Negative for significant atypia and malignancy. MRV 10/10/2020 1455 Local . 01 Electronically signed: . Sharita Vela MD, Pathologist NPI- [id number] . 01 Gross description: . Received in formalin and labeled with soft tissue mass of neck are three pieces of nunez adipose tissue ranging in size from 12.0 x 9.4 x 3.5 to 6.9 x 5.2 x 1.5 cm. The first piece is inked, serially and transversely sectioned and submitted in five sales representative gas service sections in cassettes A1-A4. Cassettes A1-A3 contain one slice each and cassette A4 contains two slices. The second piece is inked, serially and transversely sectioned, and submitted in four sales representative gas service sections in cassettes A5-A7. Cassettes A5 and A6 contain one slice each. Cassette A7 contains two slices. The third piece is inked, serially and transversely sectioned, and submitted in four sales representative gas service sections in cassette A8-A10. Cassettes A8 and A9 contain one slice each and cassette A10 contains two slices. ([id number]) /MRV 10/06/2020 0941 Local . 01 Pathologist provided ICD-10: D17.9 . 01 CPT . 691218 Performed at: 01 [facility] [address] [place] [address] [address], [place], [place] [id number] MD Yonas Minor MD Phone: [phone]
[2020-10-04] MEDS: ACETAMINOPHEN 325 MG TABLET 975 MG PO (16:40)
[2020-10-04] MEDS: LACTATED RINGERS 1,000 ML 100 ML IV (16:41)
[2020-10-04] MEDS: SCOPOLAMINE 1 PATCH TOP (16:41)
--- NOTE | 2020-10-04 17:44 | PM.PREOP ---
Pre-operative Note COVID-19 COVID-19 status: Negative Interval Note History & Physical reviewed/Exam performed by Physician: Yes Changes to H&P: No
[2020-10-04] MEDS: CEFAZOLIN 2 GM/100 ML FROZ.PIGGY IV (17:58)
--- NOTE | 2020-10-04 18:27 | SUR.OPER ---
Lateral on padded OR bed, head on pillow, gel axillary roll in place, bottom leg bent with gel pad under knee to foot, upper leg straight and supported with pillows. Upper arm supported by pillows and secured over bottom arm to padded arm board. Safety belt at hip, tape over blanket lower legs.
[2020-10-04] MEDS: BUPIVACAINE 0.25% (PF) VIAL 30 ML INJ (18:31)
[2020-10-04] MEDS: HYDROMORPHONE 2 MG INJ IV ×6 (19:57→20:22)
[2020-10-04] MEDS: OXYCODONE IR 5 MG TABLET PO ×2 (19:58→20:18)
[2020-10-04] MEDS: fentaNYL 100 MCG/2 ML INJ IV ×3 (20:09→20:22)
--- NOTE | 2020-10-04 20:09 | PM.OP.1 ---
Operative Date/Time/Diagnoses Date of procedure: 10/04/20 Time of procedure: 20:09 Pre-op diagnosis: soft tissue mass of neck Post-op diagnosis: same Procedure & Clinicians Procedure: excision of soft tissue mass posterior neck Same procedure as scheduled: Yes Indications: 40F with a symptomatic 13 cm superficial soft tissue mass of neck Surgeon: Darek Murry Anesthesia Type: MAC +/- Operative Notes Findings: Superficial 15 cm soft tissue mass consistent with a lipoma Specimen(s): other (soft tissue mass) Estimated Blood Loss (mL): 100 Procedure in detail: Patient was brought to the operating room placed supine table. Bilateral lower extremity compression devices applied. Anesthesia was induced and she was intubated with a LMA. She was in placed the beanbag in the right lateral decubitus position appropriately padded. She received 2 g of Ancef prior to skin incision. She was prepped and draped in sterile fashion. A time-out was performed. 1% lidocaine was infiltrated into the skin. A vertical incision over the posterior aspect of the upper thoracic spine was made. The subcutaneous tissue was divided. The soft tissue mass was readily palpable. The mass was grasped and then it was dissected out circumferentially. It measured approximately 15 cm in maximal diameter. Hemostasis was achieved. A 10F ALL drain was placed into the wound. The subcutaneous tissue was closed with Vicryl suture and the skin closed with Oleg. She emerged from anesthesia and was transfered to recovery in stable condition. Complications: none Post-operative Condition: stable Disposition: same day surgery
== END 2020-10-04 21:00 | disposition home or self-care (01) ==
PROVIDERS: PCP Family Medicine; Referring Provider Surgery; Visit Provider Surgery
PROC: (CPT 21552; principal; 2020-10-04 15:15)
DX: D17.0 Benign lipomatous neoplasm of skin and subcutaneous tissue of head, face and neck (principal); K21.9 Gastro-esophageal reflux disease without esophagitis; F17.210 Nicotine dependence, cigarettes, uncomplicated
CPT/HCPCS: 21552; 82962; J0690; J1100; J1170; J2250; J2405; J2704; J3010

== ENCOUNTER → 2021-01-19 12:42 | Outpatient (CLI) | payer OTHER, SELFPAY | PROVIDERS: PCP Family Medicine; Referring Provider Family Medicine; Visit Provider Family Medicine | DX: M85.80 Other specified disorders of bone density and structure, unspecified site (principal); M54.16 Radiculopathy, lumbar region; E83.50 Unspecified disorder of calcium metabolism; Z87.891 Personal history of nicotine dependence | CPT/HCPCS: 77080 ==

== ENCOUNTER → 2021-04-14 07:08 | Outpatient (CLI) | payer OTHER, SELFPAY ==
--- NOTE | 2021-04-14 | DI.MRI.S_ITS ---
PROCEDURE: MR SHOULDER RT WO CON INDICATIONS: Other instability, right shoulder TECHNIQUE: Noncontrast oblique coronal T2 fast spin echo with fat saturation, oblique sagittal T1 spin echo and T2 fast spin echo with fat saturation, axial T1 spin echo and T2 fast spin echo with fat saturation through the shoulder. COMPARISON: None. FINDINGS: Image quality: Excellent. Rotator cuff: Mild T2 signal elevation throughout the supraspinatus and infraspinatus tendons at the humeral insertion sites, indicating tendinopathy. There is no evidence of tearing involving the subscapularis, supraspinatus, infraspinatus, and teres minor tendons. No rotator cuff atrophy. Bones and bursae: No bone marrow contusions or fractures. Moderate acromioclavicular joint degeneration. The acromion demonstrates conventional anatomy, without an os acromiale. No pathologic subacromial-subdeltoid or subcoracoid bursal fluid is present. Capsule and soft tissues: There is undercutting of the posterosuperior labrum which demonstrates high T2 signal intensity within it. The long head of the biceps tendon demonstrates normal location and morphology. The rotator interval appears normal, without fibrosis. The coracohumeral ligament is normal in thickness. IMPRESSION: 1. Supraspinatus and infraspinatus tendinopathy. No rotator cuff tear. 2. Acromioclavicular joint osteoarthritis. 3. Posterior glenoid labral tearing. Dictated by: Georges Patel M.D. on 04/14/2021 at 8:18 Approved by: Georges Patel M.D. on 04/14/2021 at 8:20
== END ==
PROVIDERS: PCP Family Medicine; Referring Provider Family Medicine; Visit Provider Family Medicine
DX: M25.311 Other instability, right shoulder (principal); M19.011 Primary osteoarthritis, right shoulder; S43.491A Other sprain of right shoulder joint, initial encounter
CPT/HCPCS: 73221

== ENCOUNTER → 2022-04-12 17:47 | Outpatient (CLI) | payer OTHER, SELFPAY ==
--- NOTE | 2022-04-12 | DI.MRI.S_ITS ---
PROCEDURE: MR CERVICAL SPINE WO CON INDICATIONS: Radiculopathy, cervical region TECHNIQUE: Noncontrast sagittal T1 spin echo and T2 fast spin echo, sagittal STIR, foraminal oblique sagittal T2 fast spin echo, and axial gradient echo or T2 fast spin echo through the cervical spine. COMPARISON: None. FINDINGS: Image quality: Excellent. Alignment and Curvature: There is normal bony alignment. Bone Marrow: Marrow demonstrates normal overall signal. Spinal Cord: Visualized spinal cord has normal size and signal. No cerebellar tonsillar herniation. Paraspinous Soft Tissues: No paravertebral masses. Prevertebral soft tissues are normal in thickness. C2-C3: Loss of disc signal. Mild, diffuse disc bulge. No central stenosis. No neural foraminal narrowing. No neural compression. C3-C4: Slight loss of disc signal. No central stenosis. No neural foraminal narrowing. No neural compression C4-C5: Loss of disc signal. Mild, diffuse disc bulge. Mild narrowing of the central canal. Mild right facet hypertrophy. No neural foraminal narrowing. No neural compression. C5-C6: Loss of disc signal and slight loss of disc height. Moderate, diffuse disc bulge. Severe narrowing of the central canal with slight compression of the cervical spinal cord. Mild right facet hypertrophy. Mild bilateral uncovertebral joint hypertrophy. Severe bilateral neural foraminal narrowing with mild compression of the exiting C6 nerve roots. C6-C7: Loss of disc signal and height. Moderate, diffuse disc bulge. Severe narrowing of the central canal with slight compression of the cervical spinal cord. Moderate right and mild left uncovertebral joint hypertrophy. Severe right and moderate left neural foraminal narrowing with compression of the exiting right C7 nerve root. C7-T1: Normal appearance. IMPRESSION: 1. Multilevel degenerative disc disease. 2. Multilevel facet and uncovertebral arthropathy. 3. Severe C5-C6 and C6-C7 central canal narrowing with mild compression of the cervical spinal cord. 4. Severe bilateral C5-C6 neural foraminal narrowing with compression of the exiting C6 nerve roots. Severe right C6-C7 neural foraminal narrowing with compression of the exiting right C7 nerve root. Dictated by: Ailyn Youngblood MD, PhD on 04/13/2022 at 9:31 Approved by: Ailyn Youngblood MD, PhD on 04/13/2022 at 9:49
== END ==
PROVIDERS: PCP Family Medicine; Referring Provider Family Medicine; Visit Provider Family Medicine
DX: M50.11 Cervical disc disorder with radiculopathy, high cervical region (principal); M47.22 Other spondylosis with radiculopathy, cervical region; M48.02 Spinal stenosis, cervical region
CPT/HCPCS: 72141

== ENCOUNTER → 2022-04-24 17:44 | Outpatient (CLI) | payer OTHER, SELFPAY ==
--- NOTE | 2022-04-24 | DI.MRI.S_ITS ---
PROCEDURE: MR KNEE RT WO CON INDICATIONS: Pain in right knee TECHNIQUE: Noncontrast sagittal PD fast spin echo and T2 fast spin echo with fat saturation, sagittal 3-D FLASH with fat saturation; coronal T1 spin echo and PD fast spin echo with fat saturation, and axial PD fast spin echo with fat saturation through the knee. COMPARISON: None. FINDINGS: Image quality: Excellent. Menisci: Subtle oblique tear involving posterior horn of medial meniscus is seen extending to superior articulating surface best seen on series 7, image 23. Peripheral displacement of medial meniscus bowing medial collateral ligament is also seen. Lateral meniscus is intact. The meniscal root ligaments appear intact. Cruciate ligaments: The anterior and posterior cruciate ligaments appear intact. Medial structures: The medial collateral ligament appears intact. The posterior oblique ligament, semimembranosus tendon insertions, oblique popliteal ligament, and meniscocapsular junction appear intact. Visualized portions of the pes anserinus tendons appear normal. No abnormal bursal fluid. Lateral structures: The lateral collateral ligament, long and short heads of the biceps femoris tendon appear intact. The popliteus tendon appears normal; the popliteofibular ligament appears intact. The posterosuperior and anteroinferior popliteomeniscal fascicles appear intact. The arcuate and fabellofibular ligaments appear intact, on either side of the lateral inferior geniculate artery. Iliotibial band appears normal. Anterior structures: The quadriceps tendon is intact. Proximal patellar tendinosis and low-grade partial-thickness tear at its inferior patellar insertion is seen. Patellar alignment is normal. No femoral trochlear dysplasia or ventral trochlear prominence. No edema in the infrapatellar fat pad. Bones and cartilage: No bone marrow contusions or fractures. Mild medial femoral tibial compartment osteoarthritis and low-grade chondromalacia is noted. Low-grade chondromalacia is also seen in patellofemoral compartment. Joint space: There is small amount of joint fluid. No Merritt's cyst. Normal appearing synovial plicae are incidentally noted. IMPRESSION: 1. Subtle oblique tear involving posterior horn of medial meniscus extending to superior articulating surface. There is no lateral meniscal tear. 2. Cruciate ligaments are intact. 3. Suggestion of proximal patellar tendinosis and low-grade partial-thickness tear at its inferior patellar insertion. Quadriceps tendon is intact. 4. Mild medial femoral tibial compartment osteoarthritis and low-grade chondromalacia. Low-grade chondromalacia also noted in patellofemoral compartment. No fracture or dislocation. Small amount of joint effusion. Dictated by: Isaiah Patel M.D. on 04/25/2022 at 8:32 Approved by: Isaiah Patel M.D. on 04/25/2022 at 8:44
== END ==
PROVIDERS: PCP Family Medicine; Referring Provider Family Medicine; Visit Provider Family Medicine
DX: S83.241A Other tear of medial meniscus, current injury, right knee, initial encounter (principal); M17.11 Unilateral primary osteoarthritis, right knee; M94.261 Chondromalacia, right knee; M25.561 Pain in right knee
CPT/HCPCS: 73721

== ENCOUNTER → 2024-01-24 13:13 | Outpatient (CLI) | payer OTHER, SELFPAY ==
--- NOTE | 2024-01-24 13:15 | DI.US.S_ITS ---
PROCEDURE: US SOFT TISSUE HEAD AND NECK INDICATIONS: POST C-SPINE LUMP; HX SURGICAL REMOVAL OF LIPOMA TECHNIQUE: Real-time scanning was performed of the neck region of interest, with image documentation. COMPARISON: [facility], CR, XR CERVICAL SPINE 2 OR 3 VIEWS, 10/10/2022, 10:20. FINDINGS: Heterogeneous lobulated soft tissue mass corresponding to the palpable abnormality measuring 13.6 x 6.1 by macdonald 0.5 cm. IMPRESSION: Possible soft tissue lipoma; however differential would include both benign and malignant etiologies. If indicated, contrast-enhanced soft tissue MRI could be performed for further assessment. Dictated by: Richi REHMAN Interpreted: Jesus Brennan MD on 01/24/2024 at 13:53 Transcribed by: CAN on 01/24/2024 at 13:54 Approved by: Jesus Brennan M.D. on 01/24/2024 at 21:23
== END ==
PROVIDERS: PCP Family Medicine; Referring Provider Family Medicine; Visit Provider Family Medicine
DX: D17.0 Benign lipomatous neoplasm of skin and subcutaneous tissue of head, face and neck (principal); R22.1 Localized swelling, mass and lump, neck
CPT/HCPCS: 76536

== ENCOUNTER 2024-03-14 15:24 | Emergency (ER) | payer OTHER, SELFPAY ==
[2024-03-14] VITALS (23 sets, daily range): BP systolic 126–199; BP diastolic 61–115; PULSE 73–101; RESP 18–50; TEMP 36.8; O2SAT 94–99; BMI 39.9
--- NOTE | 2024-03-14 15:59 | ED_ITS ---
HPI - Abdominal Pain <Sarah Mcelroy, DO - Last Filed: 03/22/24 13:34> General Chief Complaint: Abdominal Pain Stated Complaint: ABD Pain Time Seen by Provider: 03/14/24 15:49 Source: patient Mode of arrival: Wheelchair Limitations: no limitations History of Present Illness HPI narrative: 44-year-old female with history of hypertension, mood disorder, PTSD, reported diagnosis of borderline personality disorder who presents with complaint of right upper quadrant pain that started this morning. She states she was lying in bed when just came on abruptly. She states she has had a couple twinges on and off the last couple days. No fevers or chills. Denies any nausea or vomiting. No back or flank pain. Patient states it is all high-risk not down low. She has had chronic issues with bowel movements once a taper normal. She has not had a bowel movement a day or so but states that is normal does not feel like she needs to. No new dysuria, urgency or frequency. No new vaginal bleeding or discharge. Patient took a Percocet which he has not home earlier today. Patient states no prior surgeries abdomen. No known drug allergies. She states tobacco, occasional alcohol, no recreational drugs. He is accompanied by her spouse. Related Data Home Medications Medication Instructions Recorded Confirmed dextroamphetamine-amphetamine 15 15 mg PO TID 11/12/18 01/18/21 mg tablet lamotrigine 100 mg tablet 25 mg PO DAILY 11/12/18 01/18/21 levothyroxine 50 mcg tablet 50 mcg PO DAILY 09/28/20 01/18/21 tamsulosin 0.4 mg capsule 0.4 mg PO DAILY 09/28/20 10/19/20 azelastine 137 mcg-fluticasone 50 1 spray intranasal BID 10/18/20 01/18/21 mcg/spray nasal spray (Dymista) cyclobenzaprine 10 mg tablet 10 mg PO TID PRN Muscle Pain 10/18/20 01/18/21 duloxetine 30 mg capsule,delayed 30 mg PO BID 10/18/20 01/18/21 release (Cymbalta) rizatriptan 10 mg tablet (Maxalt) 10 mg PO Q2-4H PRN Migraine 10/18/20 10/19/20 Headache Previous Rx's Medication Instructions Recorded oxycodone 5 mg tablet 5 mg PO Q6H PRN pain #40 tabs 10/04/20 ondansetron HCl 4 mg tablet 4 mg PO Q6H PRN nausea and 03/14/24 vomiting #7 tabs Allergies Allergy/AdvReac Type Severity Reaction Status Date / Time No Known Drug Allergies Allergy Verified 10/19/20 14:46 Review of Systems <Sarah Mcelroy DO - Last Filed: 03/22/24 13:34> Review of Systems ROS Unobtainable: All systems reviewed & are unremarkable except as noted in HPI and below Patient History <Sarah Mcelroy DO - Last Filed: 03/22/24 13:34> Medical History History of kidney stones Borderline personality disorder SVT (supraventricular tachycardia) Surgical History History of delivery H/O breast surgery History of tonsillectomy History of back surgery Social History household members: children Smoking Status: Current every day smoker alcohol intake: never Smoking Status: Current every day smoker Substance Use Type: does not use Exam <Sraah Mcelroy DO - Last Filed: 03/22/24 13:34> Narrative Exam Narrative: GENERAL: Alert and oriented x three, female in moderate distress. HEENT: Head normocephalic, atraumatic, EOMI, pupils reactive, face symmetric, moist mucous membranes NECK: Supple, full range of motion CARDIOVASCULAR: Regular rate and rhythm without murmurs, rubs or gallops. RESPIRATORY: Breath sounds equal bilaterally, no wheezes rales or rhonchi. ABDOMEN: Soft, tender right upper quadrant. Normoactive bowel sounds all 4 quadrants. No guarding or rebound, rigidity, no mass, no pulsatile mass or bruit. : No CVA tenderness EXTREMITIES: Normal range of motion, no clubbing or edema. Neurovascularly intact NEUROLOGICAL: Cranial nerves II through XII grossly intact. Moving all extremities SKIN: Warm, dry, no petechiae, no rashes or lesions. Initial Vital Signs Initial Vital Signs: Vital Signs Temperature 98.3 F 03/14/24 15:27 Pulse Rate 87 03/14/24 15:27 Respiratory Rate 18 03/14/24 15:27 Blood Pressure 163/105 H 03/14/24 15:27 Pulse Oximetry 96 03/14/24 15:27 Oxygen Delivery Method Room Air 03/14/24 15:27 <Aries Gu MD - Last Filed: 03/15/24 16:35> Initial Vital Signs Initial Vital Signs: Vital Signs Temperature 98.3 F 03/14/24 15:27 Pulse Rate 87 03/14/24 15:27 Respiratory Rate 18 03/14/24 15:27 Blood Pressure 163/105 H 03/14/24 15:27 Pulse Oximetry 96 03/14/24 15:27 Oxygen Delivery Method Room Air 03/14/24 15:27 Course <Sarah Mcelroy DO - Last Filed: 03/22/24 13:34> Orders Ordered: Discontinued Medications Sodium Chloride (Normal Saline 0.9%) 1,000 mls @ 1,000 mls/hr IV BOLUS ONE Stop: 03/14/24 20:34 Last Admin: 03/14/24 21:52 Dose: Not Given Documented By: MASON Ketorolac Tromethamine (Ketorolac 30 Mg/Ml Vial) 15 mg IV NOW ONE Stop: 03/14/24 16:06 Last Admin: 03/14/24 16:33 Dose: 15 mg Documented By: LEWIS Morphine Sulfate (Morphine 4 Mg/Ml Inj) 4 mg IV NOW ONE Stop: 03/14/24 18:09 Last Admin: 03/14/24 18:43 Dose: 4 mg Documented By: LEWIS Ondansetron HCl (Ondansetron 4 Mg Odt) 4 mg PO NOW PRN PRN Reason: Nausea And Vomiting Ondansetron HCl (Ondansetron 4 Mg/2 Ml Inj) 4 mg IV NOW PRN PRN Reason: Nausea And Vomiting Vital Signs Vital signs: Vital Signs - 8 hr 03/14/24 15:27 03/14/24 15:54 03/14/24 15:55 Temperature 98.3 F Pulse Rate 87 85 79 Respiratory Rate 18 26 H 24 Blood Pressure 163/105 H Pulse Oximetry 96 96 95 Oxygen Delivery Method Room Air 03/14/24 15:55 03/14/24 16:00 03/14/24 16:30 Temperature Pulse Rate 77 73 Respiratory Rate 18 44 H Blood Pressure 186/96 H Pulse Oximetry 97 96 Oxygen Delivery Method 03/14/24 16:43 03/14/24 16:43 03/14/24 16:46 Temperature Pulse Rate 78 73 Respiratory Rate 32 H 50 H Blood Pressure 140/61 Pulse Oximetry 96 95 Oxygen Delivery Method 03/14/24 16:46 03/14/24 17:00 03/14/24 17:00 Temperature Pulse Rate 75 Respiratory Rate 21 Blood Pressure 156/68 H 183/115 H Pulse Oximetry 99 Oxygen Delivery Method 03/14/24 17:15 03/14/24 17:15 03/14/24 17:30 Temperature Pulse Rate 81 93 H Respiratory Rate 38 H 28 H Blood Pressure 199/80 H Pulse Oximetry 99 97 Oxygen Delivery Method 03/14/24 17:45 03/14/24 17:45 03/14/24 18:00 Temperature Pulse Rate 82 92 H Respiratory Rate 21 Blood Pressure 133/75 Pulse Oximetry 98 97 Oxygen Delivery Method 03/14/24 18:00 03/14/24 18:15 03/14/24 18:15 Temperature Pulse Rate 86 Respiratory Rate 27 H Blood Pressure 126/71 131/73 Pulse Oximetry 97 Oxygen Delivery Method 03/14/24 18:30 03/14/24 18:30 03/14/24 18:42 Temperature Pulse Rate 93 H 90 Respiratory Rate 24 30 H Blood Pressure 129/65 Pulse Oximetry 96 97 Oxygen Delivery Method 03/14/24 18:42 03/14/24 19:00 03/14/24 19:01 Temperature Pulse Rate 86 Respiratory Rate 24 Blood Pressure 151/69 H 167/91 H Pulse Oximetry 96 Oxygen Delivery Method 03/14/24 19:01 03/14/24 19:30 03/14/24 19:59 Temperature Pulse Rate 82 97 H 91 H Respiratory Rate 26 H 20 27 H Blood Pressure Pulse Oximetry 96 96 95 Oxygen Delivery Method 03/14/24 19:59 03/14/24 20:00 03/14/24 20:01 Temperature Pulse Rate 94 H 90 Respiratory Rate 24 27 H Blood Pressure 165/74 H Pulse Oximetry 94 96 Oxygen Delivery Method 03/14/24 20:01 03/14/24 20:30 03/14/24 21:01 Temperature Pulse Rate 87 101 H Respiratory Rate 18 18 Blood Pressure 147/70 H Pulse Oximetry 99 98 Oxygen Delivery Method 03/14/24 21:01 Temperature Pulse Rate Respiratory Rate Blood Pressure 132/63 Pulse Oximetry Oxygen Delivery Method <Aries Gu MD - Last Filed: 03/15/24 16:35> Orders Ordered: Discontinued Medications Sodium Chloride (Normal Saline 0.9%) 1,000 mls @ 1,000 mls/hr IV BOLUS ONE Stop: 03/14/24 20:34 Last Admin: 03/14/24 21:52 Dose: Not Given Documented By: MASON Ketorolac Tromethamine (Ketorolac 30 Mg/Ml Vial) 15 mg IV NOW ONE Stop: 03/14/24 16:06 Last Admin: 03/14/24 16:33 Dose: 15 mg Documented By: LEWIS Morphine Sulfate (Morphine 4 Mg/Ml Inj) 4 mg IV NOW ONE Stop: 03/14/24 18:09 Last Admin: 03/14/24 18:43 Dose: 4 mg Documented By: LEWIS Ondansetron HCl (Ondansetron 4 Mg Odt) 4 mg PO NOW PRN PRN Reason: Nausea And Vomiting Ondansetron HCl (Ondansetron 4 Mg/2 Ml Inj) 4 mg IV NOW PRN PRN Reason: Nausea And Vomiting Consultations Consultation #1: Case discussed with Dr. Moeller of General surgery, favors acute urological problem more so than acute appendicitis, given patient's apparent lack of tenderness now on exam after Toradol dose. She feels that patient can be managed as an outpatient for now with return precautions, and otherwise likely usual post kidney stone follow-up. We will consult Urology. Vital Signs Vital signs: Vital Signs - 8 hr 03/14/24 15:27 03/14/24 15:54 03/14/24 15:55 Temperature 98.3 F Pulse Rate 87 85 79 Respiratory Rate 18 26 H 24 Blood Pressure 163/105 H Pulse Oximetry 96 96 95 Oxygen Delivery Method Room Air 03/14/24 15:55 03/14/24 16:00 03/14/24 16:30 Temperature Pulse Rate 77 73 Respiratory Rate 18 44 H Blood Pressure 186/96 H Pulse Oximetry 97 96 Oxygen Delivery Method 03/14/24 16:43 03/14/24 16:43 03/14/24 16:46 Temperature Pulse Rate 78 73 Respiratory Rate 32 H 50 H Blood Pressure 140/61 Pulse Oximetry 96 95 Oxygen Delivery Method 03/14/24 16:46 03/14/24 17:00 03/14/24 17:00 Temperature Pulse Rate 75 Respiratory Rate 21 Blood Pressure 156/68 H 183/115 H Pulse Oximetry 99 Oxygen Delivery Method 03/14/24 17:15 03/14/24 17:15 03/14/24 17:30 Temperature Pulse Rate 81 93 H Respiratory Rate 38 H 28 H Blood Pressure 199/80 H Pulse Oximetry 99 97 Oxygen Delivery Method 03/14/24 17:45 03/14/24 17:45 03/14/24 18:00 Temperature Pulse Rate 82 92 H Respiratory Rate 21 Blood Pressure 133/75 Pulse Oximetry 98 97 Oxygen Delivery Method 03/14/24 18:00 03/14/24 18:15 03/14/24 18:15 Temperature Pulse Rate 86 Respiratory Rate 27 H Blood Pressure 126/71 131/73 Pulse Oximetry 97 Oxygen Delivery Method 03/14/24 18:30 03/14/24 18:30 03/14/24 18:42 Temperature Pulse Rate 93 H 90 Respiratory Rate 24 30 H Blood Pressure 129/65 Pulse Oximetry 96 97 Oxygen Delivery Method 03/14/24 18:42 03/14/24 19:00 03/14/24 19:01 Temperature Pulse Rate 86 Respiratory Rate 24 Blood Pressure 151/69 H 167/91 H Pulse Oximetry 96 Oxygen Delivery Method 03/14/24 19:01 03/14/24 19:30 03/14/24 19:59 Temperature Pulse Rate 82 97 H 91 H Respiratory Rate 26 H 20 27 H Blood Pressure Pulse Oximetry 96 96 95 Oxygen Delivery Method 03/14/24 19:59 03/14/24 20:00 03/14/24 20:01 Temperature Pulse Rate 94 H 90 Respiratory Rate 24 27 H Blood Pressure 165/74 H Pulse Oximetry 94 96 Oxygen Delivery Method 03/14/24 20:01 03/14/24 20:30 03/14/24 21:01 Temperature Pulse Rate 87 101 H Respiratory Rate 18 18 Blood Pressure 147/70 H Pulse Oximetry 99 98 Oxygen Delivery Method 03/14/24 21:01 Temperature Pulse Rate Respiratory Rate Blood Pressure 132/63 Pulse Oximetry Oxygen Delivery Method MDM - Abdominal Pain <Sarah Mcelroy, DO - Last Filed: 03/22/24 13:34> Lab Data 03/14/24 16:27 03/14/24 16:27 Labs: Lab Results 05/11/24 05/11/24 Range/Units 15:32 16:27 WBC 10.8 (4.5-11.0) X10^3/uL RBC 4.27 (4.0-5.2) X10^6/uL Hgb 13.2 (12.0-16.0) g/dL Hct 39.5 (36-46) % MCV 92.5 (80-100) fL MCH 30.9 (26-34) PG MCHC 33.5 (30-36) % RDW 13.1 (11.6-14.8) % Plt Count 322 (150-400) X10^3/uL Neut % (Auto) 76.9 H (50-75) % Lymph % (Auto) 15.1 L (25-40) % [place] % (Auto) 5.9 (3-14) % Eos % (Auto) 1.1 L (2-4) % Baso % (Auto) 1.0 (0-2) % Neut # (Auto) 8300 H (4508-1002) /uL Lymph # (Auto) 1600 (4414-7782) /uL [place] # (Auto) 600 (0-900) /uL Eos # (Auto) 100 (0-450) /uL Baso # (Auto) 100 (0-100) /uL Sodium 138 (137-145) mmol/L Potassium 4.0 (3.4-5.1) mmol/L Chloride 106 (98-107) mmol/L Carbon Dioxide 26 (22-32) mmol/L BUN 16 (7-17) mg/dL Creatinine 0.72 (0.52-1.04) mg/dL Estimated GFR > 60 (>60) mL/min BUN/Creatinine Ratio 22.2 H (6-22) Glucose 92 (70-100) mg/dL Calcium 8.9 (8.4-10.2) mg/dL Total Bilirubin 0.8 (0.2-1.3) mg/dL AST 30 (14-36) IU/L ALT 65 H (<35) IU/L Alkaline Phosphatase 161 H (38-126) U/L Total Protein 7.2 (6.3-8.2) g/dL Albumin 4.4 (3.5-5.0) g/dL Globulin 2.8 (1.7-4.1) g/dL Albumin/Globulin Ratio 1.6 (1.0-2.8) Lipase 67 (23-300) U/L Urine Color Yellow Urine Appearance Clear Urine pH 5.5 (4.5-8.0) Ur Specific [place] 1.025 (1.000-1.035) Urine Protein Negative (Negative) Urine Glucose (UA) Negative (Negative) g/dL Urine Ketones Trace H (NEGATIVE) Urine Occult Blood Negative (Negative) Urine Nitrate Negative (Negative) Urine Bilirubin Negative (NEGATIVE) Urine Urobilinogen 0.2 (0.2) E.U./dL Ur Leukocyte Esterase Negative (NEGATIVE) Urine RBC 0-1/hpf (0-5/HPF) Urine WBC 0-1/hpf (0-5/HPF) Ur Squamous Epith Cells 1-5 /hpf (0-5/HPF) Urine Bacteria Few (2-10) H (None) Urine Mucus 1+ H (Negative) Ur Culture Indicated? Cult not indicated Vol Urine Centrifuged 10ml (spun) Urine Test Negative (Negative) MDM Narrative Medical decision making narrative: Labs show white count of 10.8 hemoglobin of 13 platelets of 322. Sodium is 138 potassium is 4 chloride 106 CO2 is 26 with a BUN of 16 creatinine of 0.72, glucose 92, ALT is 65 AST is 30 with a bilirubin of 0.8 alk-phos is 161. Lipase is 67. Abdominal ultrasound shows diffuse increased echogenicity consistent with fatty infiltration of the liver no gallstones, no gallbladder wall thickening no pericholecystic fluid or Ron's sign. Common bile duct 4.9 mm pancreas unremarkable nonobstructing right renal calculi 7 mm no hydro UA shows trace ketones, no nitrates no leuks, 1 RBC, 1 WBC 1-5 squamous few bacteria. Negative . Patient has had a dose of Toradol as well as morphine. She still quite uncomfortable, reaming machine tender on exam. Discussed further evaluation with CT abdomen pelvis which he is agreeable. Patient signed out to Dr. Gu while awaiting CT results. <Aries Gu MD - Last Filed: 03/15/24 16:35> Lab Data Labs: Lab Results 03/14/24 03/14/24 Range/Units 15:32 16:27 WBC 10.8 (4.5-11.0) X10^3/uL RBC 4.27 (4.0-5.2) X10^6/uL Hgb 13.2 (12.0-16.0) g/dL Hct 39.5 (36-46) % MCV 92.5 (80-100) fL MCH 30.9 (26-34) PG MCHC 33.5 (30-36) % RDW 13.1 (11.6-14.8) % Plt Count 322 (150-400) X10^3/uL Neut % (Auto) 76.9 H (50-75) % Lymph % (Auto) 15.1 L (25-40) % [place] % (Auto) 5.9 (3-14) % Eos % (Auto) 1.1 L (2-4) % Baso % (Auto) 1.0 (0-2) % Neut # (Auto) 8300 H (1134-5734) /uL Lymph # (Auto) 1600 (3491-4403) /uL [place] # (Auto) 600 (0-900) /uL Eos # (Auto) 100 (0-450) /uL Baso # (Auto) 100 (0-100) /uL Sodium 138 (137-145) mmol/L Potassium 4.0 (3.4-5.1) mmol/L Chloride 106 (98-107) mmol/L Carbon Dioxide 26 (22-32) mmol/L BUN 16 (7-17) mg/dL Creatinine 0.72 (0.52-1.04) mg/dL Estimated GFR > 60 (>60) mL/min BUN/Creatinine Ratio 22.2 H (6-22) Glucose 92 (70-100) mg/dL Calcium 8.9 (8.4-10.2) mg/dL Total Bilirubin 0.8 (0.2-1.3) mg/dL AST 30 (14-36) IU/L ALT 65 H (<35) IU/L Alkaline Phosphatase 161 H (38-126) U/L Total Protein 7.2 (6.3-8.2) g/dL Albumin 4.4 (3.5-5.0) g/dL Globulin 2.8 (1.7-4.1) g/dL Albumin/Globulin Ratio 1.6 (1.0-2.8) Lipase 67 (23-300) U/L Urine Color Yellow Urine Appearance Clear Urine pH 5.5 (4.5-8.0) Ur Specific [place] 1.025 (1.000-1.035) Urine Protein Negative (Negative) Urine Glucose (UA) Negative (Negative) g/dL Urine Ketones Trace H (NEGATIVE) Urine Occult Blood Negative (Negative) Urine Nitrate Negative (Negative) Urine Bilirubin Negative (NEGATIVE) Urine Urobilinogen 0.2 (0.2) E.U./dL Ur Leukocyte Esterase Negative (NEGATIVE) Urine RBC 0-1/hpf (0-5/HPF) Urine WBC 0-1/hpf (0-5/HPF) Ur Squamous Epith Cells 1-5 /hpf (0-5/HPF) Urine Bacteria Few (2-10) H (None) Urine Mucus 1+ H (Negative) Ur Culture Indicated? Cult not indicated Vol Urine Centrifuged 10ml (spun) Urine Test Negative (Negative) MDM Narrative Medical decision making narrative: Labs show white count of 10.8 hemoglobin of 13 platelets of 322. Sodium is 138 potassium is 4 chloride 106 CO2 is 26 with a BUN of 16 creatinine of 0.72, glucose 92, ALT is 65 AST is 30 with a bilirubin of 0.8 alk-phos is 161. Lipase is 67. Abdominal ultrasound shows diffuse increased echogenicity consistent with fatty infiltration of the liver no gallstones, no gallbladder wall thickening no pericholecystic fluid or Ron's sign. Common bile duct 4.9 mm pancreas unremarkable nonobstructing right renal calculi 7 mm no hydro. 03/14/2024 at 7:40 p.m. transfer of care accept note. Case signed out from Dr. Mcelroy. 44-year-old female with history of depression and PTSD, with right upper quadrant abdominal discomfort this morning, some tenderness, some radiation of symptoms to the back, nausea or vomiting, no response to enema tried at home, no UTI symptoms or vaginal bleeding, right upper quadrant ultrasound negative, there was a stone mentioned in the kidney but no hydronephrosis on ultrasound imaging, labs unremarkable, urine dip sent. CT abdomen and pelvis pending at this time. Patient over at CT scanner at this time, I discussed workup and plan for CT scanning with family member at the bedside, who agrees in his aware of plan. Assumed care. 8:40 p.m., phone call from Radiology Dr. Duncan. Has concerns on CT imaging that there is a nonobstructing right-sided kidney stone, an obstructing 4 mm right-sided ureteral stone at the VPJ level that seems most consistent with source of her pain, however he is concerned that there seems to be the presence of 2 appendicoliths in the appendix which has minimal surrounding inflammatory change, could consider acute appendicitis but favors this may be a more chronic change. 9:00 p.m., case discussed with patient/family, the CT findings. On my repeat exam patient fairly suggestible about presence of pain, does not seem to have discomfort when I palpate the right lower quadrant or right middle quadrant or right upper quadrant, nor left sided abdomen. Seems less likely by clinical exam at this time to be acute appendicitis, would favor ureteral stone as source of symptoms. However given possible appendicitis consideration, we will consult with General surgery. Case discussed with Dr. Moeller, who agrees case seems more consistent with ureteral stone, however could be early appendicitis, favors treatment for now for ureteral stone, return precautions, outpatient evaluation at this time. Will consult Urology as well 9:20 p.m., case discussed with Urology Dr. Colon, agrees this case seems to be more likely an acute urological problem with the right sided ureteral stone, sent home with strainer for collection, tamsulosin, analgesics, NSAIDs, antiemetics, he can see patient in follow-up. 9:30 p.m., above consultation information relayed to patient/family, outpatient trial for now, urine strainer, tamsulosin NSAIDs for primary treatment of ureteral stone, with return precaution warnings, in case this really could be an atypical or early appendicitis, no antibiotics indicated at present, urinalysis negative. They seem comfortable with this plan. Discharged home with family Critical Care Time <Aries Gu MD - Last Filed: 03/15/24 16:35> Critical Care Time Critical Care Time: Yes Total Critical Care Time: 45 Attestation: The high probability of a clinically significant, sudden or life threatening deterioration of the [abdominal pelvic, genitourinary, renal] system(s) required my full and direct attention, intervention and personal management. The aggregate critical care time was [45] minutes. This time is in addition to time spent performing reported procedures but includes the following: [x] Data Review and interpretation [x] Patient assessment and monitoring of vital signs [x] Documentation [x] Medication orders and management Discharge Plan Departure Patient Disposition: Home Clinical Impression: Right ureteral calculus Abdominal pain Qualifiers: Abdominal location: right lower quadrant Qualified Code(s): R10.31 - Right lower quadrant pain Instructions: DI for Kidney Stones, DI for Abdominal Pain-Adult Activity Restrictions/Additional Instructions: Right-sided abdominal pain acute onset this morning, no trauma, no fever, test negative, initial ultrasound upper abdomen showed no definite gallbladder problem, CT abdomen and pelvis additional imaging pursued, which showed presence of an obstructing stone of 4 mm diameter in your right-sided ureter between the kidney and bladder, that is likely the cause of your pain. However the radiologist had concerns about your appendix as well, which had minimal inflammation but to little tiny appendicoliths, so it is possible to have early acute appendicitis but it may represent chronic appendicitis. On my exam he did not seem to have significant tenderness at that location. Acute onset of symptoms seems more consistent with passing a stone. Case was discussed with General surgery Dr. Moeller, who was in agreement, thought outpatient trial with close follow up seemed reasonable, treating as a kidney stone for now. Case was discussed with Urology Dr. Colon, who similarly agreed this seems more likely acute kidney stone related ureteral pain. Trial of expulsive treatment with tamsulosin to help expel the stone, naproxen as needed for pain control, and anti nausea medications to use if needed. Urine strainer for collection of any sediment or stone for testing if you pass this. Follow up with Urology early next week. Return to this/nearest emergency department for any change worsening symptoms or any concerns prior Prescriptions: New ondansetron HCl 4 mg tablet 4 mg PO Q6H PRN (Reason: nausea and vomiting) Qty: 7 0RF No Action levothyroxine 50 mcg tablet 50 mcg PO DAILY tamsulosin 0.4 mg capsule 0.4 mg PO DAILY dextroamphetamine-amphetamine 15 mg tablet 15 mg PO TID lamotrigine 100 mg tablet 25 mg PO DAILY duloxetine [Cymbalta] 30 mg Capsule,Delayed Release(Dr/Ec) 30 mg PO BID cyclobenzaprine [Flexeril] 10 mg Tablet 10 mg PO TID PRN (Reason: Muscle Pain) rizatriptan [Maxalt] 10 mg Tablet 10 mg PO Q2-4H PRN (Reason: Migraine Headache) azelastine-fluticasone [Dymista] 137-50 mcg/spray [place],Non-Aerosol 1 spray INTRANASAL BID oxycodone 5 mg tablet 5 mg PO Q6H PRN (Reason: pain) Qty: 40 0RF Referrals: Sharita Moeller MD [Physician] - Miriam Hernandez DO [Primary Care Provider] - Tommy Colon MD [Physician] - 3-5 days Stand Alone Forms: Patient Portal/API
--- NOTE | 2024-03-14 16:05 | DI.US.S_ITS ---
PROCEDURE: US ABDOMEN LIMITED INDICATIONS: RUQ pain TECHNIQUE: Real-time scanning was performed of the abdominal and retroperitoneal organs, with image documentation. COMPARISON: None. FINDINGS: Liver: Hepatic parenchyma shows diffuse increased echogenicity consistent with fatty infiltration. Gallbladder: Sonolucent without cholelithiasis. No gallbladder wall thickening. No pericholecystic fluid or Ron's sign. Common Bile Duct: 4.9 mm. Pancreas: Unremarkable as visualized Right Kidney: Nonobstructing right renal calculus 7 mm. No hydronephrosis. IMPRESSION: 1. Nonobstructing right renal calculus. 2. Hepatic fatty infiltration without focal mass lesion Approved by: Jamaal Jesus M.D. on 03/14/2024 at 17:11
[2024-03-14] MEDS: KETOROLAC 30 MG/ML VIAL 15 MG IV (16:33)
[2024-03-14 16:38] LABS: Add Manual Diff / Slide Review NO; Basophils Absolute Auto 100 /uL (0-100); Eosinophils Absolute Auto 100 /uL (0-450); Eosinophils Percent Auto 1.1 % (2-4); Hematocrit 39.5 % (36-46); Hemoglobin 13.2 g/dL (12.0-16.0); Lymphocytes Absolute Auto 1600 /uL (1100-4500); Lymphocytes Percent Auto 15.1 % (25-40); Mean Corpuscular HGB Conc 33.5 % (30-36); Mean Corpuscular Hemoglobin 30.9 PG (26-34); Mean Corpuscular Volume 92.5 fL (80-100); Monocytes Absolute Auto 600 /uL (0-900); Monocytes Percent Auto 5.9 % (3-14); Neutrophils Absolute Auto 8300 /uL (1500-7000); Neutrophils Percent Auto 76.9 % (50-75); Platelet Count 322 X10^3/uL (150-400); Red Blood Cell Count 4.27 X10^6/uL (4.0-5.2); Red Cell Distribution Width 13.1 % (11.6-14.8); White Blood Cell Count 10.8 X10^3/uL (4.5-11.0)
[2024-03-14 16:50] LABS: Alanine Aminotransferase 65 IU/L (<35); Albumin 4.4 g/dL (3.5-5.0); Albumin Globulin Ratio 1.6 (1.0-2.8); Alkaline Phosphatase 161 U/L (38-126); Aspartate Aminotransferase 30 IU/L (14-36); BUN Creatinine Ratio 22.2 (6-22); Bilirubin Total 0.8 mg/dL (0.2-1.3); Blood Urea Nitrogen 16 mg/dL (7-17); Calcium 8.9 mg/dL (8.4-10.2); Carbon Dioxide 26 mmol/L (22-32); Chloride 106 mmol/L (98-107); Estimated Glomerular Filt Rate > 60 mL/min (>60); Globulin 2.8 g/dL (1.7-4.1); Glucose 92 mg/dL (70-100); HEMOLYSIS < 15 (0-50); Lipase 67 U/L (23-300); Sodium 138 mmol/L (137-145); Total Protein 7.2 g/dL (6.3-8.2)
[2024-03-14] MEDS: MORPHINE 4 MG/ML INJ IV (18:43)
[2024-03-14 19:22] LABS: Appearance Urine UA CLEAR; Bilirubin Urine UA NEGATIVE (NEGATIVE); Color Urine UA YELLOW; Glucose Urine UA NEGATIVE (Negative); Ketones Urine UA TRACE (NEGATIVE); Leukocyte Esterase Urine UA NEGATIVE (NEGATIVE); Nitrite Urine UA NEGATIVE (Negative); Occult Blood Urine UA NEGATIVE (Negative); Protein Urine UA NEGATIVE (Negative); Specific Gravity Urine UA 1.025 (1.000-1.035); Urobilinogen Urine UA 0.2 E.U./dL (0.2)
[2024-03-14 19:26] LABS: Pregnancy Test Urine Negative (Negative)
[2024-03-14 19:27] LABS: pH Urine UA 5.5 (4.5-8.0)
--- NOTE | 2024-03-14 19:30 | PC.NURSE ---
pt lying on stretcher resting waiting for results of CT and disposition
--- NOTE | 2024-03-14 19:35 | DI.CT.S_ITS ---
PROCEDURE: CT ABDOMEN PELVIS W CON INDICATIONS: right upper abd pain, neg US TECHNIQUE: After the administration of intravenous contrast, axial sections acquired from the lung bases to the pubic symphysis. Coronal and sagittal reformats were performed. For radiation dose reduction, the following was used: automated exposure control, adjustment of mA and/or kV according to patient size. COMPARISON: [facility], CT, CT ABDOMEN RENAL PROTOCOL, 04/13/2019, 9:01. Outside Film, CT, CT KUB, 09/12/2020, 15:31. [facility], US, US ABDOMEN LIMITED, 03/14/2024, 16:50. FINDINGS: Image quality: Diagnostic. Lower Chest: No significant findings. ABDOMEN: Liver: No solid mass. Diffuse fatty liver infiltration is noted. Gallbladder: No radiopaque gallstones or wall thickening. Biliary ducts: No biliary dilation. Pancreas: No ductal dilation. Spleen: Size is within normal limits. Incidental note is made of an accessory splenule along the hilum of the primary spleen. Adrenal Glands: No adrenal nodules. Kidneys and Ureters: There is an obstructing stone seen at the right ureteropelvic junction, measuring 4 mm, as seen on series 2, image 37 and on series 3, image 40. There is mild right-sided hydronephrosis. There is a nonobstructing right-sided kidney stone seen that measures 5 mm and 400 Hounsfield units. No right-sided kidney stones are seen. No right-sided hydronephrosis. The kidneys demonstrate normal size and enhance symmetrically. Stomach and Bowel: The appendix is abnormal, with 2 dens appendicoliths seen. The appendix is enlarged, measuring 13 mm. Minimal surrounding inflammatory change can be seen. The appendix is not retrocecal, but is oriented medially and centrally. The appendix previously demonstrated a normal appearance. No dilated loops of small bowel are seen. No significant colonic abnormality is seen. Peritoneum: No abnormal intraperitoneal fluid. No free air. Ventral Wall: No significant ventral hernia. Abdominal Nodes: No retroperitoneal or mesenteric adenopathy by size criteria. Vessels: Aorta and inferior vena cava are normal in size. PELVIS: Pelvic Organs: The uterus appears normal for age. No adnexal masses are seen. Bladder: No bladder wall thickening, accounting for underdistention. Pelvic Nodes: No enlarged lymph nodes. Miscellaneous: No inguinal hernias are seen. Bones: No aggressive osseous abnormality. L4-L5 postoperative change is seen. IMPRESSION: 4 mm obstructing stone seen at the right ureterovesicular junction. Nonobstructing 5 mm right-sided kidney stone. The appendix is also abnormal, with dilatation and appendicoliths. Minimal surrounding inflammatory change can be seen. Acute appendicitis is possible, yet chronic appendicitis is considered to be more likely. Additional findings: Fatty liver infiltration Accessory splenule L4-L5 postoperative change Note: Case discussed by telephone with Dr. Gu at 8:24 p.m. [place] time on March 14, 2024. Dictated by: Farooq Duncan M.D. on 03/14/2024 at 19:19 Approved by: Farooq Duncan M.D. on 03/14/2024 at 19:27
[2024-03-14 19:42] LABS: Bacteria Urine Few (2-10); Culture Indicated Urine Cult Not Indicated; Mucus Urine 1+ (Negative); RBC Urine 0-1/HPF (0-5/HPF); Squamous Epithelial Cell Urine 1-5 /HPF (0-5/HPF); Urine Volume 10mL (spun); WBC Urine 0-1/HPF (0-5/HPF)
== END 2024-03-14 22:01 | disposition home or self-care (01) ==
PROVIDERS: Emergency Medicine; Emergency Provider Emergency Medicine; PCP Family Medicine
DX: N20.1 Calculus of ureter (principal); R10.31 Right lower quadrant pain
CPT/HCPCS: 36415; 74177; 76705; 80053; 81001; 81025; 83690; 85025; 96374; 96375; 99284; J1885; J2270; Q9967

== ENCOUNTER → 2024-03-25 10:29 | Outpatient (CLI) | payer OTHER, SELFPAY | PROVIDERS: PCP Family Medicine; Visit Provider Obstetrics & Gynecology | DX: N39.0 Urinary tract infection, site not specified (principal) | CPT/HCPCS: 87077; 87086; 87186 ==

== ENCOUNTER 2024-06-01 23:47 | Emergency (ER) | payer OTHER, SELFPAY ==
[2024-06-01 23:52] VITALS: PULSE 72; O2SAT 97
[2024-06-01 23:53] VITALS: BP 173/109; PULSE 69; O2SAT 97
--- NOTE | 2024-06-01 23:55 | ED_ITS ---
HPI - Female Genitourinary General Chief complaint: Abdominal Pain Stated complaint: KIDNEY STONE Time Seen by Provider: 06/01/24 23:50 History of Present Illness HPI Narrative: 44-year-old female with history of kidney stones, iron deficiency anemia, hypothyroidism presents by private vehicle from home for possible kidney stone. Patient reports sudden onset severe right lower quadrant/flank pain consistent with previous stones. Took a diazepam and oxybutynin for symptoms at home without removal. has had to have surgical removal of stones before, last with Dr. Mendoza June 2023 Related Data Home Medications Medication Instructions Recorded Confirmed dextroamphetamine-amphetamine 15 15 mg PO TID 11/12/18 04/22/24 mg tablet lamotrigine 100 mg tablet 25 mg PO DAILY 11/12/18 04/22/24 levothyroxine 50 mcg tablet 50 mcg PO DAILY 09/28/20 04/22/24 tamsulosin 0.4 mg capsule 0.4 mg PO DAILY 09/28/20 04/22/24 azelastine 137 mcg-fluticasone 50 1 spray intranasal BID 10/18/20 04/22/24 mcg/spray nasal spray (Dymista) cyclobenzaprine 10 mg tablet 10 mg PO TID PRN Muscle Pain 10/18/20 04/22/24 duloxetine 30 mg capsule,delayed 30 mg PO BID 10/18/20 04/22/24 release (Cymbalta) rizatriptan 10 mg tablet (Maxalt) 10 mg PO Q2-4H PRN Migraine 10/18/20 04/22/24 Headache hydroxyzine pamoate 25 mg capsule 50 mg PO BID 03/25/24 04/22/24 lidocaine 5 % topical ointment topical 03/25/24 04/22/24 oxycodone-acetaminophen 7.5 mg-325 1 tab PO 4XD PRN 03/25/24 04/22/24 mg tablet Previous Rx's Medication Instructions Recorded oxycodone 5 mg tablet 5 mg PO Q6H PRN pain #40 tabs 10/04/20 ondansetron HCl 4 mg tablet 4 mg PO Q6H PRN nausea and 03/14/24 vomiting #7 tabs cefpodoxime 200 mg tablet 200 mg PO Q12H #20 tabs 06/02/24 tamsulosin 0.4 mg capsule (Flomax) 0.4 mg PO DAILY #30 caps 06/02/24 Allergies Allergy/AdvReac Type Severity Reaction Status Date / Time No Known Drug Allergies Allergy Verified 04/22/24 15:26 Patient History Medical History Disability Acne (~1989) Sleep apnea (~2014) Allergies (~2014) Depression (~2003) Migraines Headache ADHD (~2011) Shoulder pain Fractures (~2008) Foot pain (~1996) Fibromyalgia (~2014) Chronic back pain (~1996) Carpal tunnel syndrome (~2018) Ankle pain (~1996) Chicken pox (~1984) Anemia (~2019) Tinnitus (~1999) Recurrent sinusitis (~1997) Painful menstrual periods Irregular menstrual cycle (~2019) Herpes (~1997) Heavy menstrual period (~2019) Chlamydia (~1997) Abnormal Pap smear of cervix Frequent UTI Irritable bowel syndrome Abnormal uterine bleeding (AUB) Rectocele History of kidney stones Borderline personality disorder SVT (supraventricular tachycardia) (~2017) Surgical History Anesthesia History of shoulder surgery (~2020) Lipoma of neck (~2019) Kidney stones History of carpal tunnel release History of delivery (~03/2007) H/O breast surgery (~2000) History of tonsillectomy (~2008) History of back surgery Family History Sister Suicide Grandfather Mental health problem Substance Use Type: does not use Exam Initial Vital Signs Initial Vital Signs: Vital Signs Pulse Rate 72 06/01/24 23:52 Pulse Oximetry 97 06/01/24 23:52 Const: Awake, alert,uncomfortable, in pain Cardiac: regular rate, regular rhythm RESP: unlabored, clear bilaterally GI: Soft, nontender, nondistended Skin: Warm, Dry, intact, no rashes Neuro: AO x3, CN II-XII grossly intact, moves all extremities Course Orders Ordered: ED Orders 06/01/24 23:54 CT abdomen pelvis wo con Stat 06/02/24 00:26 UA Complete [Urinalysis and Microscopic] Stat Urine Culture Stat Discontinued Medications Sodium Chloride (Normal Saline 0.9%) 1,000 mls @ 1,000 mls/hr IV BOLUS ONE Stop: 06/02/24 00:53 Last Admin: 06/02/24 00:20 Dose: 1,000 mls/hr Documented By: Ketorolac Tromethamine (Ketorolac 30 Mg/Ml Vial) 15 mg IV NOW ONE Stop: 06/01/24 23:55 Last Admin: 06/02/24 00:18 Dose: 15 mg Documented By: Morphine Sulfate (Morphine 4 Mg/Ml Inj) 4 mg IV NOW ONE Stop: 06/02/24 00:28 Last Admin: 06/02/24 00:36 Dose: 4 mg Documented By: Ondansetron HCl (Ondansetron 4 Mg/2 Ml Inj) 4 mg IV NOW ONE Stop: 06/01/24 23:55 Last Admin: 06/02/24 00:18 Dose: 4 mg Documented By: Vital Signs Vital signs: Vital Signs - 8 hr 06/01/24 23:52 06/01/24 23:53 06/01/24 23:53 Temperature Pulse Rate 72 69 Respiratory Rate Blood Pressure 173/109 H Pulse Oximetry 97 97 Oxygen Delivery Method 06/02/24 00:00 06/02/24 00:05 Temperature 97.9 F Pulse Rate 71 72 Respiratory Rate 16 Blood Pressure 173/109 H Pulse Oximetry 97 97 Oxygen Delivery Method Room Air Room Air MDM - Female Genitourinary Differential Diagnosis Differential diagnosis: Likely urinary tract infection and other (RENAL COLIC, PYELONEPHRITIS) Lab Data 06/01/24 00:17 06/01/24 00:17 Labs: Lab Results 06/01/24 06/02/24 Range/Units 00:17 00:26 WBC 9.0 (4.5-11.0) X10^3/uL RBC 4.53 (4.0-5.2) X10^6/uL Hgb 14.6 (12.0-16.0) g/dL Hct 42.8 (36-46) % MCV 94.4 (80-100) fL MCH 32.2 (26-34) PG MCHC 34.1 (30-36) % RDW 15.2 H (11.6-14.8) % Plt Count 299 (150-400) X10^3/uL Neut % (Auto) 62.7 (50-75) % Lymph % (Auto) 25.7 (25-40) % [place] % (Auto) 9.3 (3-14) % Eos % (Auto) 1.0 L (2-4) % Baso % (Auto) 1.3 (0-2) % Neut # (Auto) 5700 (1622-9058) /uL Lymph # (Auto) 2300 (5475-3524) /uL [place] # (Auto) 800 (0-900) /uL Eos # (Auto) 100 (0-450) /uL Baso # (Auto) 100 (0-100) /uL Sodium 136 L (137-145) mmol/L Potassium 3.5 (3.4-5.1) mmol/L Chloride 101 (98-107) mmol/L Carbon Dioxide 28 (22-32) mmol/L BUN 19 H (7-17) mg/dL Creatinine 0.88 (0.52-1.04) mg/dL Estimated GFR > 60 (>60) mL/min BUN/Creatinine Ratio 21.6 (6-22) Glucose 86 (70-100) mg/dL Calcium 9.5 (8.4-10.2) mg/dL Total Bilirubin 0.8 (0.2-1.3) mg/dL AST 32 (14-36) IU/L ALT 27 (<35) IU/L Alkaline Phosphatase 98 (38-126) U/L Total Protein 7.4 (6.3-8.2) g/dL Albumin 4.4 (3.5-5.0) g/dL Globulin 3.0 (1.7-4.1) g/dL Albumin/Globulin Ratio 1.5 (1.0-2.8) Urine Color Yellow Urine Appearance Clear Urine pH 6.0 (4.5-8.0) Ur Specific [place] <=1.005 (1.000-1.035) Urine Protein 2+ H (Negative) Urine Glucose (UA) Negative (Negative) g/dL Urine Ketones Negative (NEGATIVE) Urine Occult Blood 2+ H (Negative) Urine Nitrate Negative (Negative) Urine Bilirubin Negative (NEGATIVE) Urine Urobilinogen 0.2 (0.2) E.U./dL Ur Leukocyte Esterase 1+ H (NEGATIVE) Urine RBC None seen (0-5/HPF) Urine WBC 1-5/hpf (0-5/HPF) Ur Squamous Epith Cells 0-1 /hpf (0-5/HPF) Urine Bacteria Few (2-10) H (None) Ur Culture Indicated? Specimen cultured Vol Urine Centrifuged 10ml (spun) Imaging Data CT scan - abdomen/pelvis: Radiologist's Impression: PROCEDURE: CT ABDOMEN PELVIS WO CON INDICATIONS: RLQ ABD/FLANK PAIN, HX STONES TECHNIQUE: Axial sections were acquired from the lung bases to the pubic symphysis. Coronal and sagittal reformats were performed. For radiation dose reduction, the following was used: automated exposure control, adjustment of mA and/or kV according to patient size. COMPARISON: [facility], CT, CT ABDOMEN PELVIS W CON, 03/14/2024, 19:40. FINDINGS: Image quality: Diagnostic. Lower Chest: No significant findings. URINARY: Right Kidney: 4 mm nonobstructing calculus at the inferior pole of the right kidney. Moderate right hydronephrosis. Right Ureter: Moderate right hydroureter and mild periureteral fat stranding. A 3 mm calculus is seen in the distal right ureter a few cm proximal to the ureterovesicular junction. Left Kidney: No stones or hydronephrosis. Left Ureter: No hydroureter. Bladder: Normal wall thickness. No stones. ABDOMEN: Liver: No contour-deforming solid mass. Gallbladder: No radiopaque gallstones or wall thickening. Biliary ducts: No biliary dilation. Pancreas: No ductal dilation. Spleen: Size is within normal limits. Adrenal Glands: No adrenal nodules. Stomach and Bowel: Normal colonic caliber, without significant wall thickening. The appendix no longer demonstrates an abnormal dilated appearance. Peritoneum: No abnormal intraperitoneal fluid. No free air. Ventral Wall: No hernia. Abdominal Nodes: No enlarged retroperitoneal or mesenteric lymph nodes. Vessels: Aorta and inferior vena cava are normal in size. PELVIS: Pelvic Organs: Unremarkable. Pelvic Nodes: Unremarkable. Miscellaneous: No inguinal hernias are seen. Bones: Postsurgical changes are seen in the lumbar spine. IMPRESSION: 1. Right distal ureteral 3 mm calculus with moderate right hydroureteronephrosis. 2. Additional nonobstructing right renal calculus. Approved by: Jesus Brennan M.D. on 06/02/2024 at 0:59 MDM Narrative Medical decision making narrative: Right lower quadrant abdominal pain with history renal colic. Abdomen soft, no peritoneal signs. Labs, imaging ordered. Laboratory work shows no significant acute abnormalities. No leukocytosis, normal hemoglobin, kidney function within normal limits. CT shows 3 mm stone with moderate hydronephrosis. Patient informed of lab and imaging findings. She states that she has pain and nausea medications at home as well as an open referral back to her urologist Dr. Mendoza. Patient does not take daily Flomax, she was advised that she should start this medication unless otherwise specified to by Urology. Small leukocyte esterase and bacteria on UA, since patient has stone with hydronephrosis an abx rx sent to pharmacy with flomax rx. Discharge Plan Departure Patient Disposition: Home Clinical Impression: Renal colic Instructions: DI for Kidney Stones Activity Restrictions/Additional Instructions: You have a 3 mm stone with mild swelling of your right kidney. Your laboratory work today is normal. Take daily Flomax and make sure that you follow up with your urologist. You did have a small amount of bacteria in your urine. Normally this would be considered incidental, but due to the presence of your kidney stone a course of antibiotics has also been sent with the Flomax prescription to the pharmacy. Finish all of these medications Prescriptions: New tamsulosin [Flomax] 0.4 mg capsule 0.4 mg PO DAILY Qty: 30 0RF cefpodoxime 200 mg tablet 200 mg PO Q12H Qty: 20 0RF Rx Instructions: must administer with a meal/food No Action lidocaine 5 % ointment topical hydroxyzine pamoate 25 mg capsule 50 mg PO BID oxycodone-acetaminophen 7.5-325 mg tablet 1 tab PO 4XD PRN levothyroxine 50 mcg tablet 50 mcg PO DAILY tamsulosin 0.4 mg capsule 0.4 mg PO DAILY dextroamphetamine-amphetamine 15 mg tablet 15 mg PO TID lamotrigine 100 mg tablet 25 mg PO DAILY duloxetine [Cymbalta] 30 mg Capsule,Delayed Release(Dr/Ec) 30 mg PO BID cyclobenzaprine [Flexeril] 10 mg Tablet 10 mg PO TID PRN (Reason: Muscle Pain) rizatriptan [Maxalt] 10 mg Tablet 10 mg PO Q2-4H PRN (Reason: Migraine Headache) azelastine-fluticasone [Dymista] 137-50 mcg/spray [place],Non-Aerosol 1 spray INTRANASAL BID oxycodone 5 mg tablet 5 mg PO Q6H PRN (Reason: pain) Qty: 40 0RF ondansetron HCl 4 mg tablet 4 mg PO Q6H PRN (Reason: nausea and vomiting) Qty: 7 0RF Referrals: Miriam Hernandez DO [Primary Care Provider] - Stand Alone Forms: Patient Portal/API
[2024-06-02] VITALS (9 sets, daily range): BP systolic 125–173; BP diastolic 71–109; PULSE 66–76; RESP 16; TEMP 36.6; O2SAT 97–100; BMI 34.9
[2024-06-02] MEDS: KETOROLAC 30 MG/ML VIAL 15 MG IV (00:18)
[2024-06-02] MEDS: ONDANSETRON 4 MG/2 ML INJ IV (00:18)
[2024-06-02] MEDS: SODIUM CHLORIDE 0.9% 1,000 ML 1000 ML IV (00:20)
[2024-06-02 00:31] LABS: Add Manual Diff / Slide Review NO; Basophils Absolute Auto 100 /uL (0-100); Basophils Percent Auto 1.3 % (0-2); Eosinophils Absolute Auto 100 /uL (0-450); Hematocrit 42.8 % (36-46); Hemoglobin 14.6 g/dL (12.0-16.0); Lymphocytes Absolute Auto 2300 /uL (1100-4500); Lymphocytes Percent Auto 25.7 % (25-40); Mean Corpuscular HGB Conc 34.1 % (30-36); Mean Corpuscular Hemoglobin 32.2 PG (26-34); Mean Corpuscular Volume 94.4 fL (80-100); Monocytes Absolute Auto 800 /uL (0-900); Monocytes Percent Auto 9.3 % (3-14); Neutrophils Absolute Auto 5700 /uL (1500-7000); Neutrophils Percent Auto 62.7 % (50-75); Platelet Count 299 X10^3/uL (150-400); Red Blood Cell Count 4.53 X10^6/uL (4.0-5.2); Red Cell Distribution Width 15.2 % (11.6-14.8)
[2024-06-02] MEDS: MORPHINE 4 MG/ML INJ IV ×2 (00:36→01:36)
[2024-06-02 00:40] LABS: Alanine Aminotransferase 27 IU/L (<35); Albumin 4.4 g/dL (3.5-5.0); Albumin Globulin Ratio 1.5 (1.0-2.8); Alkaline Phosphatase 98 U/L (38-126); Aspartate Aminotransferase 32 IU/L (14-36); BUN Creatinine Ratio 21.6 (6-22); Bilirubin Total 0.8 mg/dL (0.2-1.3); Blood Urea Nitrogen 19 mg/dL (7-17); Calcium 9.5 mg/dL (8.4-10.2); Carbon Dioxide 28 mmol/L (22-32); Chloride 101 mmol/L (98-107); Estimated Glomerular Filt Rate > 60 mL/min (>60); Glucose 86 mg/dL (70-100); HEMOLYSIS < 15 (0-50); Potassium 3.5 mmol/L (3.4-5.1); Sodium 136 mmol/L (137-145); Total Protein 7.4 g/dL (6.3-8.2)
[2024-06-02 00:50] LABS: Appearance Urine UA CLEAR; Bilirubin Urine UA NEGATIVE (NEGATIVE); Color Urine UA YELLOW; Glucose Urine UA NEGATIVE (Negative); Ketones Urine UA NEGATIVE (NEGATIVE); Leukocyte Esterase Urine UA 1+ (NEGATIVE); Nitrite Urine UA NEGATIVE (Negative); Occult Blood Urine UA 2+ (Negative); Protein Urine UA 2+ (Negative); Specific Gravity Urine UA <=1.005 (1.000-1.035); Urobilinogen Urine UA 0.2 E.U./dL (0.2)
[2024-06-02 01:00] LABS: Bacteria Urine Few (2-10); Culture Indicated Urine Specimen Cultured; RBC Urine None Seen (0-5/HPF); Squamous Epithelial Cell Urine 0-1 /HPF (0-5/HPF); Urine Volume 10mL (spun); WBC Urine 1-5/HPF (0-5/HPF)
[2024-06-02] MEDS: ACETAMINOPHEN IV 1,000 MG/100 ML VIAL 400 MG IV (01:36)
== END 2024-06-02 01:59 | disposition home or self-care (01) ==
PROVIDERS: Emergency Provider Emergency Medicine; PCP Family Medicine
DX: N23 Unspecified renal colic (principal); Z87.442 Personal history of urinary calculi
CPT/HCPCS: 36415; 74176; 80053; 81001; 85025; 87077; 87086; 87186; 96361; 96365; 96375; 96376; 99284; J0136; J1885; J2270; J2405

== ENCOUNTER 2024-09-24 00:36 | Emergency (ER) | payer OTHER, SELFPAY ==
[2024-09-24] VITALS (7 sets, daily range): BP systolic 116–136; BP diastolic 55–82; PULSE 95–117; RESP 18–22; TEMP 36.1; O2SAT 96–99; BMI 30.7
[2024-09-24 01:33] LABS: Add Manual Diff / Slide Review NO; Basophils Absolute Auto 0 /uL (0-100); Basophils Percent Auto 0.4 % (0-2); Eosinophils Absolute Auto 0 /uL (0-450); Eosinophils Percent Auto 0.5 % (2-4); Hematocrit 43.5 % (36-46); Hemoglobin 14.7 g/dL (12.0-16.0); Lymphocytes Absolute Auto 900 /uL (1100-4500); Lymphocytes Percent Auto 9.2 % (25-40); Mean Corpuscular HGB Conc 33.9 % (30-36); Mean Corpuscular Hemoglobin 32.8 PG (26-34); Mean Corpuscular Volume 96.8 fL (80-100); Monocytes Absolute Auto 100 /uL (0-900); Monocytes Percent Auto 1.2 % (3-14); Neutrophils Absolute Auto 8500 /uL (1500-7000); Neutrophils Percent Auto 88.7 % (50-75); Platelet Count 274 X10^3/uL (150-400); Red Cell Distribution Width 14.8 % (11.6-14.8); White Blood Cell Count 9.5 X10^3/uL (4.5-11.0)
[2024-09-24 01:35] LABS: Alanine Aminotransferase 29 IU/L (<35); Albumin 4.7 g/dL (3.5-5.0); Albumin Globulin Ratio 1.7 (1.0-2.8); Alkaline Phosphatase 89 U/L (38-126); Aspartate Aminotransferase 37 IU/L (14-36); Bilirubin Total 1.2 mg/dL (0.2-1.3); Blood Urea Nitrogen 17 mg/dL (7-17); Calcium 9.4 mg/dL (8.4-10.2); Carbon Dioxide 28 mmol/L (22-32); Chloride 98 mmol/L (98-107); Estimated Glomerular Filt Rate 46 mL/min (>60); Globulin 2.7 g/dL (1.7-4.1); Glucose 92 mg/dL (70-100); HEMOLYSIS 20 (0-50); Potassium 3.5 mmol/L (3.4-5.1); Sodium 137 mmol/L (137-145); Total Protein 7.4 g/dL (6.3-8.2)
[2024-09-24] MEDS: KETOROLAC 30 MG/ML VIAL 15 MG IV (01:39)
--- NOTE | 2024-09-24 02:07 | DI.CT.S_ITS ---
PROCEDURE: CT KIDNEY URETER BLADDER (KUB) INDICATIONS: right flank pain TECHNIQUE: Axial sections were acquired from the lung bases to the pubic symphysis. Coronal and sagittal reformats were performed. For radiation dose reduction, the following was used: automated exposure control, adjustment of mA and/or kV according to patient size. COMPARISON: [facility], CT, CT ABDOMEN PELVIS WO CON, 06/01/2024, 23:58. FINDINGS: Image quality: Diagnostic Lower chest: Unremarkable lung bases. Partially seen breast implants. Liver: No contour deforming mass. Solid organs are not well assessed otherwise on noncontrast imaging. Gallbladder and biliary system: Unremarkable, nondilated Pancreas: No ductal dilation Spleen: Nonenlarged Adrenals: No adrenal nodules. Kidneys: Significant edema surrounding the right kidney. 5-6 mm right distal ureter stone is present. There is moderate upstream hydroureteronephrosis. No obstructing left urinary calculus. Vessels and lymph nodes: No abdominal aortic aneurysm no pathologic lymph nodes by size criteria. Bowel and peritoneum: Colonic diverticula. No pathologic ascites. No small bowel obstruction. Body wall: Tiny fat containing umbilical hernia. Pelvis: Bladder is unremarkable. Reproductive organs are unremarkable on limited CT evaluation. Bones: Lumbar fusion hardware. IMPRESSION: Moderate right hydroureteronephrosis secondary to a 5-6 mm distal ureter stone. There is significant inflammatory changes and edema around the right kidney, correlate with urinalysis. Differential also includes forniceal rupture. No significant discrepancy from prelim report. Other findings above. Dictated by: Wade Car M.D. on 09/24/2024 at 7:52 Approved by: Wade Car M.D. on 09/24/2024 at 8:00
--- NOTE | 2024-09-24 02:07 | ED_ITS ---
HPI - Abdominal Pain General Chief Complaint: Abdominal Pain Stated Complaint: abd pain, possible kidney stone Time Seen by Provider: 09/24/24 01:23 Source: patient Mode of arrival: Ambulatory History of Present Illness HPI narrative: Patient 44-year-old female history of hypertension, mood disorder, PTSD, multiple any stones presenting today with sudden onset of right-sided flank pain. Reports that it is moving and intensifying. This feels like prior kidney stone. She reports that 2 priors needed lithotripsy. She also says that she has had an appendectomy. No fevers or chills Related Data Home Medications Medication Instructions Recorded Confirmed dextroamphetamine-amphetamine 15 15 mg PO TID 11/12/18 04/22/24 mg tablet lamotrigine 100 mg tablet 25 mg PO DAILY 11/12/18 04/22/24 levothyroxine 50 mcg tablet 50 mcg PO DAILY 09/28/20 04/22/24 tamsulosin 0.4 mg capsule 0.4 mg PO DAILY 09/28/20 04/22/24 azelastine 137 mcg-fluticasone 50 1 spray intranasal BID 10/18/20 04/22/24 mcg/spray nasal spray (Dymista) cyclobenzaprine 10 mg tablet 10 mg PO TID PRN Muscle Pain 10/18/20 04/22/24 duloxetine 30 mg capsule,delayed 30 mg PO BID 10/18/20 04/22/24 release (Cymbalta) rizatriptan 10 mg tablet (Maxalt) 10 mg PO Q2-4H PRN Migraine 10/18/20 04/22/24 Headache hydroxyzine pamoate 25 mg capsule 50 mg PO BID 03/25/24 04/22/24 lidocaine 5 % topical ointment topical 03/25/24 04/22/24 oxycodone-acetaminophen 7.5 mg-325 1 tab PO 4XD PRN 03/25/24 04/22/24 mg tablet Previous Rx's Medication Instructions Recorded oxycodone 5 mg tablet 5 mg PO Q6H PRN pain #40 tabs 10/04/20 ondansetron HCl 4 mg tablet 4 mg PO Q6H PRN nausea and 03/14/24 vomiting #7 tabs cefpodoxime 200 mg tablet 200 mg PO Q12H #20 tabs 06/02/24 tamsulosin 0.4 mg capsule (Flomax) 0.4 mg PO DAILY #30 caps 06/02/24 ciprofloxacin HCl 500 mg tablet 500 mg PO BID #14 tabs 09/24/24 (Cipro) ondansetron 8 mg disintegrating 8 mg PO Q8H #14 tabs 09/24/24 tablet Allergies Allergy/AdvReac Type Severity Reaction Status Date / Time No Known Drug Allergies Allergy Verified 04/22/24 15:26 Patient History Medical History Disability Acne (~1989) Sleep apnea (~2014) Allergies (~2014) Depression (~2003) Migraines Headache ADHD (~2011) Shoulder pain Fractures (~2008) Foot pain (~1996) Fibromyalgia (~2014) Chronic back pain (~1996) Carpal tunnel syndrome (~2018) Ankle pain (~1996) Chicken pox (~1984) Anemia (~2019) Tinnitus (~1999) Recurrent sinusitis (~1997) Painful menstrual periods Irregular menstrual cycle (~2019) Herpes (~1997) Heavy menstrual period (~2019) Chlamydia (~1997) Abnormal Pap smear of cervix Frequent UTI Irritable bowel syndrome Abnormal uterine bleeding (AUB) Rectocele History of kidney stones Borderline personality disorder SVT (supraventricular tachycardia) (~2017) Surgical History Anesthesia History of shoulder surgery (~2020) Lipoma of neck (~2019) Kidney stones History of carpal tunnel release History of delivery (~03/2007) H/O breast surgery (~2000) History of tonsillectomy (~2008) History of back surgery Family History Sister Suicide Grandfather Mental health problem Social History household members: children Smoking Status: Current every day smoker alcohol intake: never Smoking Status: Current every day smoker Substance Use Type: does not use Exam Initial Vital Signs Initial Vital Signs: Vital Signs Temperature 96.9 F L 09/24/24 00:44 Pulse Rate 117 H 09/24/24 00:44 Respiratory Rate 22 09/24/24 00:44 Blood Pressure 116/82 09/24/24 00:44 Pulse Oximetry 96 09/24/24 00:44 Oxygen Delivery Method Room Air 09/24/24 00:44 GENERAL: Alert 44-year-old female appears uncomfortable and in no acute distress. HEENT: Head atraumatic,EOMI, pupils reactive, face symmetric, moist mucous membranes CARDIOVASCULAR: Regular rate and rhythm without murmurs, rubs or gallops. RESPIRATORY: Breath sounds equal bilaterally, no wheezes rales or rhonchi. ABDOMEN: Soft, pain right thigh negative Ron's sign no distention EXTREMITIES: Normal range of motion, no clubbing or edema. Neurovascularly intact NEUROLOGICAL: Alert and oriented x4.Normal gait and speech. Cranial nerves II through XII grossly intact. SKIN: Warm, dry, no laceration, no petechiae, no rashes or lesions. Course Orders Ordered: ED Orders 09/24/24 00:50 CBC Auto Diff [Complete Blood Count AUTO DIFF] Stat CMP [Comprehensive Metabolic Panel] Stat 09/24/24 01:40 Urine Culture Stat Urine Microscopic Stat 09/24/24 02:07 CT kidney ureter bladder (KUB) Stat Discontinued Medications Cefdinir (Cefdinir 300 Mg Capsule) 300 mg PO NOW ONE Stop: 09/24/24 02:53 Ciprofloxacin (Ciprofloxacin 250 Mg Tablet) 500 mg PO NOW ONE Stop: 09/24/24 02:57 Last Admin: 09/24/24 03:10 Dose: 500 mg Documented By: Hydromorphone HCl (Hydromorphone 1 Mg Inj) 0.5 mg IV NOW ONE Stop: 09/24/24 02:08 Last Admin: 09/24/24 02:17 Dose: 0.5 mg Documented By: KEYANNA Hydromorphone HCl (Hydromorphone 1 Mg Inj) 1 mg IV NOW ONE Stop: 09/24/24 02:53 Last Admin: 09/24/24 03:05 Dose: 1 mg Documented By: Ketorolac Tromethamine (Ketorolac 30 Mg/Ml Vial) 15 mg IV NOW ONE Stop: 09/24/24 01:24 Last Admin: 09/24/24 01:39 Dose: 15 mg Documented By: Vital Signs Vital signs: Vital Signs - 8 hr 09/24/24 00:44 09/24/24 01:49 09/24/24 01:49 Temperature 96.9 F L Pulse Rate 117 H 95 H Respiratory Rate 22 20 Blood Pressure 116/82 123/71 Pulse Oximetry 96 99 Oxygen Delivery Method Room Air Room Air 09/24/24 02:00 09/24/24 02:00 09/24/24 02:20 Temperature Pulse Rate 100 H 101 H Respiratory Rate 18 22 Blood Pressure 129/74 Pulse Oximetry 96 98 Oxygen Delivery Method Room Air Room Air 09/24/24 02:20 09/24/24 02:30 09/24/24 02:30 Temperature Pulse Rate 100 H Respiratory Rate Blood Pressure 130/61 136/66 Pulse Oximetry 98 Oxygen Delivery Method 09/24/24 03:00 09/24/24 03:00 09/24/24 03:11 Temperature Pulse Rate 99 H Respiratory Rate Blood Pressure 117/55 L 126/60 Pulse Oximetry 99 Oxygen Delivery Method Room Air 09/24/24 03:11 Temperature Pulse Rate 106 H Respiratory Rate Blood Pressure Pulse Oximetry 99 Oxygen Delivery Method Room Air MDM - Abdominal Pain Lab Data 09/24/24 00:50 09/24/24 00:50 Labs: Lab Results 09/24/24 09/24/24 Range/Units 00:50 01:40 WBC 9.5 (4.5-11.0) X10^3/uL RBC 4.50 (4.0-5.2) X10^6/uL Hgb 14.7 (12.0-16.0) g/dL Hct 43.5 (36-46) % MCV 96.8 (80-100) fL MCH 32.8 (26-34) PG MCHC 33.9 (30-36) % RDW 14.8 (11.6-14.8) % Plt Count 274 (150-400) X10^3/uL Neut % (Auto) 88.7 H (50-75) % Lymph % (Auto) 9.2 L (25-40) % [place] % (Auto) 1.2 L (3-14) % Eos % (Auto) 0.5 L (2-4) % Baso % (Auto) 0.4 (0-2) % Neut # (Auto) 8500 H (6672-3042) /uL Lymph # (Auto) 900 L (5532-0751) /uL [place] # (Auto) 100 (0-900) /uL Eos # (Auto) 0 (0-450) /uL Baso # (Auto) 0 (0-100) /uL Sodium 137 (137-145) mmol/L Potassium 3.5 (3.4-5.1) mmol/L Chloride 98 (98-107) mmol/L Carbon Dioxide 28 (22-32) mmol/L BUN 17 (7-17) mg/dL Creatinine 1.42 H (0.52-1.04) mg/dL Estimated GFR 46 L (>60) mL/min BUN/Creatinine Ratio 12.0 (6-22) Glucose 92 (70-100) mg/dL Calcium 9.4 (8.4-10.2) mg/dL Total Bilirubin 1.2 (0.2-1.3) mg/dL AST 37 H (14-36) IU/L ALT 29 (<35) IU/L Alkaline Phosphatase 89 (38-126) U/L Total Protein 7.4 (6.3-8.2) g/dL Albumin 4.7 (3.5-5.0) g/dL Globulin 2.7 (1.7-4.1) g/dL Albumin/Globulin Ratio 1.7 (1.0-2.8) Urine RBC None seen (0-5/HPF) Urine WBC 30-100/hpf H (0-5/HPF) Ur Squamous Epith Cells 0-1 /hpf (0-5/HPF) Urine Bacteria Many (>30) H (None) Ur Culture Indicated? Cult not indicated Vol Urine Centrifuged 10ml (spun) Point of care testing: Point of Care Testing Test Results Negative Urine Dip Bedside Urine Glucose Negative Bedside Urine Bilirubin - Negative Bedside Urine Ketone ++ 40 Urine Specific [place] 1.015 Bedside Urine Occult Blood +++ Bedside Urine pH 6.0 Bedside Urine Protein + 30 Bedside Urine Urobilinogen - Negative Bedside Urine Nitrite + Positive Bedside Urine Leukocytes +++ [address] scan - abdomen/pelvis: Radiologist's Impression: Preliminary report severe right hydro ureteral nephrosis with perinephric and periureteral inflammatory changes with an obstructing distal ureteral calculus measuring 5 mm [facility] Narrative Medical decision making narrative: [facility] CC: Right-sided abdominal pain Complicating co-morbidities: Prior kidney stones frequent UTI with drug- resistant Medical records reviewed: Prior urine cultures from 03/25/2024 shows pansensitive E coli. Urine culture from 06/02/2024 shows pansensitive E coli Differential considered: Nephrolithiasis cholelithiasis cholecystitis diverticulitis Exam documented above, pertinent findings include: Patient appears quite uncomfortable holding and grabbing her right side. She is tender in her flank Lab Test results independently reviewed as above. Pertinent findings: WBC 9.5 Creatinine 1.4 previously 0.8 Urinalysis nitrates and leukocyte positive Imaging studies independently reviewed: CT 5 mm distal ureteral calculus Treatments: Toradol, Dilaudid Cipro Re-evaluations: Patient is feeling better after Dilaudid. Reports that she has on a pain contract she does not need anymore prescription for pain medication Discussion: 44-year-old female presents today with right-sided flank pain. She has had multiple kidney stones in the past this feels similar. She is found to have a 5 mm distal ureteral stone. She does have nitrates and leukocyte positive urine concerning for UTI. She reports he was she was actually seen at by her PCP yesterday who is waiting for a urine culture to come back. She says that she has a history of drug resistance however the last 2 cultures we have some this year show jensen sensitivity. She has no leukocytosis. She is afebrile. She does have some mild COURTNEY with a creatinine of 1.42. She is also followed by Urology in [facility] This time she does not have evidence of sepsis she does have a stone which should be passable. No need for urgent urology consultation however I do strongly encouraged patient to call her urologist 1st thing in the morning for close follow-up Discharge Plan Departure Patient Disposition: Home Clinical Impression: UTI (urinary tract infection), Right kidney stone Instructions: DI for Kidney Stones Activity Restrictions/Additional Instructions: *You have been diagnosed with kidney stone and UTI *What to do: At this time please make sure that you are taking your antibiotic. You will need to call your urologist 1st thing in the morning and let them know. Your creatinine was up a little today at 1.42 *Continue to take medications as directed Cipro 500 mg twice a day for 7 days Zofran 8 mg every 8 hours if needed for nausea or vomiting *Follow up with your primary care provider in 2-3 days or call [phone] *Return to ER if you should have increasing pain fever confusion persistent vomiting or any new, worsening or concerning symptoms Prescriptions: New ciprofloxacin HCl [Cipro] 500 mg tablet 500 mg PO BID Qty: 14 0RF ondansetron 8 mg tablet,disintegrating 8 mg PO Q8H Qty: 14 0RF No Action lidocaine 5 % ointment topical hydroxyzine pamoate 25 mg capsule 50 mg PO BID oxycodone-acetaminophen 7.5-325 mg tablet 1 tab PO 4XD PRN levothyroxine 50 mcg tablet 50 mcg PO DAILY tamsulosin 0.4 mg capsule 0.4 mg PO DAILY dextroamphetamine-amphetamine 15 mg tablet 15 mg PO TID lamotrigine 100 mg tablet 25 mg PO DAILY tamsulosin [Flomax] 0.4 mg capsule 0.4 mg PO DAILY Qty: 30 0RF cefpodoxime 200 mg tablet 200 mg PO Q12H Qty: 20 0RF Rx Instructions: must administer with a meal/food duloxetine [Cymbalta] 30 mg Capsule,Delayed Release(Dr/Ec) 30 mg PO BID cyclobenzaprine [Flexeril] 10 mg Tablet 10 mg PO TID PRN (Reason: Muscle Pain) rizatriptan [Maxalt] 10 mg Tablet 10 mg PO Q2-4H PRN (Reason: Migraine Headache) azelastine-fluticasone [Dymista] 137-50 mcg/spray [place],Non-Aerosol 1 spray INTRANASAL BID oxycodone 5 mg tablet 5 mg PO Q6H PRN (Reason: pain) Qty: 40 0RF ondansetron HCl 4 mg tablet 4 mg PO Q6H PRN (Reason: nausea and vomiting) Qty: 7 0RF Referrals: Miriam Hernandez DO [Primary Care Provider] - Stand Alone Forms: Patient Portal/API/Survey
--- NOTE | 2024-09-24 02:09 | PC.NURSE ---
Pt to imaging via stretcher with tech
[2024-09-24] MEDS: HYDROMORPHONE 1 MG INJ 0.5 MG IV (02:17)
[2024-09-24] MEDS: HYDROMORPHONE 1 MG INJ IV (03:05)
[2024-09-24] MEDS: CIPROFLOXACIN 250 MG TABLET 500 MG PO (03:10)
[2024-09-24 04:03] LABS: Bacteria Urine Many (>30); Culture Indicated Urine Cult Not Indicated; RBC Urine None Seen (0-5/HPF); Squamous Epithelial Cell Urine 0-1 /HPF (0-5/HPF); Urine Volume 10mL (spun); WBC Urine 30-100/HPF (0-5/HPF)
== END 2024-09-24 03:18 | disposition home or self-care (01) ==
PROVIDERS: Emergency Provider Emergency Medicine; PCP Family Medicine
DX: N20.0 Calculus of kidney (principal); N39.0 Urinary tract infection, site not specified; Z87.442 Personal history of urinary calculi
CPT/HCPCS: 36415; 74176; 80053; 81003; 81015; 81025; 85025; 87077; 87086; 87186; 96374; 96375; 96376; 99284; J1171; J1885

== ENCOUNTER 2024-10-12 21:20 | Emergency (ER) | payer OTHER, SELFPAY ==
[2024-10-12 21:32] VITALS: BP 136/89; PULSE 70; RESP 16; TEMP 37; O2SAT 98; BMI 30.7
--- NOTE | 2024-10-13 03:09 | ED.SKABFB ---
HPI - Skin/Abscess/Foreign Bdy General Chief complaint: Skin/Abscess/Foreign Body Stated complaint: Concerns about Clots in Legs Source: patient Mode of arrival: Ambulatory History of Present Illness HPI narrative: Patient left without being seen by provider Related Data Home Medications Medication Instructions Recorded Confirmed dextroamphetamine-amphetamine 15 15 mg PO TID 11/12/18 04/22/24 mg tablet lamotrigine 100 mg tablet 25 mg PO DAILY 11/12/18 04/22/24 levothyroxine 50 mcg tablet 50 mcg PO DAILY 09/28/20 04/22/24 tamsulosin 0.4 mg capsule 0.4 mg PO DAILY 09/28/20 04/22/24 azelastine 137 mcg-fluticasone 50 1 spray intranasal BID 10/18/20 04/22/24 mcg/spray nasal spray (Dymista) cyclobenzaprine 10 mg tablet 10 mg PO TID PRN Muscle Pain 10/18/20 04/22/24 duloxetine 30 mg capsule,delayed 30 mg PO BID 10/18/20 04/22/24 release (Cymbalta) rizatriptan 10 mg tablet (Maxalt) 10 mg PO Q2-4H PRN Migraine 10/18/20 04/22/24 Headache hydroxyzine pamoate 25 mg capsule 50 mg PO BID 03/25/24 04/22/24 lidocaine 5 % topical ointment topical 03/25/24 04/22/24 oxycodone-acetaminophen 7.5 mg-325 1 tab PO 4XD PRN 03/25/24 04/22/24 mg tablet Previous Rx's Medication Instructions Recorded oxycodone 5 mg tablet 5 mg PO Q6H PRN pain #40 tabs 10/04/20 ondansetron HCl 4 mg tablet 4 mg PO Q6H PRN nausea and 03/14/24 vomiting #7 tabs cefpodoxime 200 mg tablet 200 mg PO Q12H #20 tabs 06/02/24 tamsulosin 0.4 mg capsule (Flomax) 0.4 mg PO DAILY #30 caps 06/02/24 ciprofloxacin HCl 500 mg tablet 500 mg PO BID #14 tabs 09/24/24 (Cipro) ondansetron 8 mg disintegrating 8 mg PO Q8H #14 tabs 09/24/24 tablet Allergies Allergy/AdvReac Type Severity Reaction Status Date / Time No Known Drug Allergies Allergy Verified 04/22/24 15:26 Patient History Medical History Disability Acne (~1989) Sleep apnea (~2014) Allergies (~2014) Depression (~2003) Migraines Headache ADHD (~2011) Shoulder pain Fractures (~2008) Foot pain (~1996) Fibromyalgia (~2014) Chronic back pain (~1996) Carpal tunnel syndrome (~2018) Ankle pain (~1996) Chicken pox (~1984) Anemia (~2019) Tinnitus (~1999) Recurrent sinusitis (~1997) Painful menstrual periods Irregular menstrual cycle (~2019) Herpes (~1997) Heavy menstrual period (~2019) Chlamydia (~1997) Abnormal Pap smear of cervix Frequent UTI Irritable bowel syndrome Abnormal uterine bleeding (AUB) Rectocele History of kidney stones Borderline personality disorder SVT (supraventricular tachycardia) (~2017) Surgical History Anesthesia History of shoulder surgery (~2020) Lipoma of neck (~2019) Kidney stones History of carpal tunnel release History of delivery (~03/2007) H/O breast surgery (~2000) History of tonsillectomy (~2008) History of back surgery Family History Sister Suicide Grandfather Mental health problem Social History household members: children Smoking Status: Current every day smoker alcohol intake: never Smoking Status: Current every day smoker tobacco type: smokeless tobacco Exam Initial Vital Signs Initial Vital Signs: Vital Signs Temperature 98.6 F 10/12/24 21:32 Pulse Rate 70 10/12/24 21:32 Respiratory Rate 16 10/12/24 21:32 Blood Pressure 136/89 10/12/24 21:32 Pulse Oximetry 98 10/12/24 21:32 Oxygen Delivery Method Room Air 10/12/24 21:32 Course Vital Signs Vital signs: Vital Signs - 8 hr 10/12/24 21:32 Temperature 98.6 F Pulse Rate 70 Respiratory Rate 16 Blood Pressure 136/89 Pulse Oximetry 98 Oxygen Delivery Method Room Air Discharge Plan Departure Patient Disposition: Left Without Being Seen Clinical Impression: Patient left after triage Prescriptions: No Action lidocaine 5 % ointment topical hydroxyzine pamoate 25 mg capsule 50 mg PO BID oxycodone-acetaminophen 7.5-325 mg tablet 1 tab PO 4XD PRN levothyroxine 50 mcg tablet 50 mcg PO DAILY tamsulosin 0.4 mg capsule 0.4 mg PO DAILY dextroamphetamine-amphetamine 15 mg tablet 15 mg PO TID lamotrigine 100 mg tablet 25 mg PO DAILY tamsulosin [Flomax] 0.4 mg capsule 0.4 mg PO DAILY Qty: 30 0RF cefpodoxime 200 mg tablet 200 mg PO Q12H Qty: 20 0RF Rx Instructions: must administer with a meal/food duloxetine [Cymbalta] 30 mg Capsule,Delayed Release(Dr/Ec) 30 mg PO BID cyclobenzaprine [Flexeril] 10 mg Tablet 10 mg PO TID PRN (Reason: Muscle Pain) rizatriptan [Maxalt] 10 mg Tablet 10 mg PO Q2-4H PRN (Reason: Migraine Headache) azelastine-fluticasone [Dymista] 137-50 mcg/spray [place],Non-Aerosol 1 spray INTRANASAL BID oxycodone 5 mg tablet 5 mg PO Q6H PRN (Reason: pain) Qty: 40 0RF ondansetron HCl 4 mg tablet 4 mg PO Q6H PRN (Reason: nausea and vomiting) Qty: 7 0RF ciprofloxacin HCl [Cipro] 500 mg tablet 500 mg PO BID Qty: 14 0RF ondansetron 8 mg tablet,disintegrating 8 mg PO Q8H Qty: 14 0RF
== END 2024-10-12 23:13 | disposition left against medical advice (07) ==
PROVIDERS: Emergency Provider Emergency Medicine; PCP Family Medicine
CPT/HCPCS: 99281

== ENCOUNTER → 2025-05-30 13:16 | Outpatient (CLI) | payer OTHER, SELFPAY ==
--- NOTE | 2025-05-30 13:17 | DI.MRI.S_ITS ---
PROCEDURE: MR SHOULDER LT WO CON INDICATIONS: impingement syndrome of left shoulder TECHNIQUE: Noncontrast oblique coronal T2 fast spin echo with fat saturation, oblique sagittal T1 spin echo and T2 fast spin echo with fat saturation, axial T1 spin echo and T2 fast spin echo with fat saturation through the shoulder. COMPARISON: [facility], MR, MR SHOULDER RT WO CON, 04/14/2021, 7:44. [facility], CR, XR SHOULDER 2+ VIEWS LEFT, 01/30/2024, 12:53. FINDINGS: Image quality: Excellent. Rotator cuff: Mild T2 signal elevation diffusely throughout the supraspinatus and infraspinatus tendons at the humeral insertion sites extending the musculotendinous junction, indicating tendinopathy. Low-grade intrasubstance tearing of the mid/posterior supraspinatus tendon at the humeral insertion site. Subscapularis, infraspinatus, and teres minor tendons are intact. Bones and bursae: No bone marrow contusions or fractures. Mild glenohumeral and acromioclavicular joint degeneration. The acromion demonstrates conventional anatomy, without an os acromiale. No pathologic subacromial-subdeltoid or subcoracoid bursal fluid is present. Capsule and soft tissues: Labrum is within normal limits The long head of the biceps tendon demonstrates normal location and morphology. The rotator interval appears normal, without fibrosis. The coracohumeral ligament is normal in thickness. IMPRESSION: 1. Acromioclavicular and glenohumeral joint osteoarthritis. 2. Supraspinatus and infraspinatus tendinopathy. Low-grade tearing of the supraspinatus tendon. Dictated by: Georges Patel M.D. on 05/31/2025 at 12:10 Approved by: Georges Patel M.D. on 05/31/2025 at 12:12
== END ==
PROVIDERS: PCP Family Medicine; Referring Provider Family Medicine; Visit Provider Family Medicine
DX: M75.112 Incomplete rotator cuff tear or rupture of left shoulder, not specified as traumatic (principal); M25.512 Pain in left shoulder; M19.012 Primary osteoarthritis, left shoulder
CPT/HCPCS: 73221

== ENCOUNTER 2025-09-27 12:53 | Day surgery (SDC) | payer OTHER, SELFPAY ==
[2025-09-09 13:54] VITALS: BMI 24.1
[2025-09-27] VITALS (8 sets, daily range): BP systolic 109–148; BP diastolic 70–91; PULSE 75–95; RESP 14–27; TEMP 36.7–36.9; O2SAT 95–99; BMI 26.6
--- NOTE | 2025-09-27 | PATH_ITS ---
[facility] Accession Number: [id number] No. of containers..01 Tissue . 01 Material submitted: . uterus - UTERUS,CERVIX,BILATERAL FALLOPIAN TUBES . 01 Diagnosis: UTERUS, CERVIX, BILATERAL FALLOPIAN TUBES; HYSTERECTOMY AND BILATERAL SALPINGECTOMY: Uterine weight: 94 grams. Uterine cervix: Mild chronic inflammation and associated reactive squamous metaplasia; negative for dysplasia or malignancy. Endometrium: Secretory phase endometrium, negative for atypia, hyperplasia, or malignancy. Myometrium: Small benign intramural leiomyoma, 0.5 cm in diameter. Negative for adenomyosis, on licensing representative sections. Benign bilateral fallopian tubes and paratubal cyst. [facility] 10/04/2025 1658 Local . 01 Electronically signed: . Lynda Hanley MD, Pathologist NPI- [id number] . 01 Gross description: . Received in formalin with no patient identifiers (name correction form received), and uterus, cervix, bilateral fallopian tubes, per requisition, is a uterus with attached cervix and separate bilateral fallopian tubes. The uterus and cervix at 94 grams, 9.2 cm cervix to fundus by 5.5 cm cornu to cornu by 4.5 cm anterior to posterior. The cervix is 2.8 cm long by 3.0 cm diameter with nunez, smooth ectocervical mucosa and a patent os. The serosa is purple-nunez, smooth and congested. The endometrium is red-nunez, mildly hemorrhagic and edematous, 0.5 cm thick. The myometrium is nunez, trabeculated, and up to 1.7 cm thick with one, 0.5 cm, white, whorled, intramural nodule. The shorter fallopian tube is 6.2 cm long by 0.4 cm diameter. The longer fallopian tube is 7.5 cm long by 0.5 cm diameter. The cut surfaces are nunez with pinpoint lumens. [employer]ist sections are submitted as follows: A1: Anterior and posterior cervix. A2: Anterior endomyometrium, to include myometrial nodule. A3: Posterior endomyometrium. A4: [place] fallopian tube with entire bisected fimbriae. A5: Longer fallopian tube with entire bisected fimbriae. ([id number]) /MRV 09/29/2025 1329 Local . 01 Pathologist provided ICD-10: D25.9, N81.9 . 01 CPT . 912893 Specimen Comment: A courtesy copy of this report has been sent to [facility] Pathology Performed at: [address] [address], [place], [place] [id number] MD Yonas Minor MD Phone: [phone]
[2025-09-27] MEDS: LACTATED RINGERS 1,000 ML 42 ML IV ×2 (13:46→16:15)
--- NOTE | 2025-09-27 14:12 | PM.PREOP ---
Pre-operative Note Interval Note History & Physical reviewed/Exam performed by Physician: Yes Changes to H&P: No ASA Class (for procedural sedation): II
--- NOTE | 2025-09-27 15:12 | SUR.OPER ---
Lithotomy on padded OR bed. [place] Pad Positioner under torso. Head on pillow, arms padded and tucked at sides, purple safety strap across chest. IV site and ports padded and protected. Legs secured in padded yellow fins stirrups. Surgeon approved final position prior to start of procedure.
[2025-09-27] MEDS: BUPivacaine 0.25% W/ EPI (PF) 30 ML VIAL INJ (15:24)
[2025-09-27] MEDS: ACETAMINOPHEN IV 1,000 MG/100 ML VIAL 400 MG IV (16:23)
--- NOTE | 2025-09-27 17:28 | PM.OP.1 ---
Operative Date/Time/Diagnoses Date of procedure: 09/27/25 Time of procedure: 15:05 Pre-op diagnosis: symptomatic pelvic organ prolapse Post-op diagnosis: same Procedure & Clinicians Procedure: total laparoscopic hysterectomy, posterior vaginal repair Same procedure(s) as scheduled: Yes Indications: symptomatic pelvic organ prolapse Surgeon: Keara Berg Assisted?: Yes Fire Prevention Specialist: Karly Fisher Anesthesia Type: General Operative Notes Findings: stage 2 posterior prolapse, stage 1 uterine prolapse normal appearing bilateral fallopian tubes, adnexae scant filmy adhesions RLQ consistent with prior appendectomy remainder abdominal survey wnl Closure Type: primary Specimen(s): other (uterus, cervix, bilateral fallopian tubes ) Applied: none Estimated Blood Loss (mL): 100 Blood products transfused: none Procedure in detail: The patient was taken to the operating room, placed on the operating table in the supine position and intubated with ETT.? The patient was then placed in the lithotomy position with her legs in Jalen stirrups.? The patient was then examined under anesthesia with the above findings, then prepped and draped in a sterile fashion.? A troncoso catheter was placed.? Time out was performed. A sterile speculum was inserted into the vagina.? The anterior cervix was grasped with single tooth tenaculum and under gentle traction the uterus was sounded to 8cm.? The medium V-care manipulator was placed in the standard fashion and the balloon was inflated. The tenaculum was removed from the cervix and the green colpotomy cup was placed flush against the cervix/vaginal apex followed by placement of blue occluder via the introitus.?Gloves were changed and attention was then turned to the abdominal portion of the case. Following superficial infiltration with 2cc 0.25% bupivicaine a 5mm incision was made infraumbilically and abdominal entry was achieved under direct visualization using the 5mm VisaPort trocar.? Abdomen was insufflated to 15mmHg.? Two lateral 5-mm ports were placed in a similar manner under direct visualization.? The uterus was anteverted and abdominal survey was noted with findings as noted above. The Powerseal was used to dissect bilateral fallopian tubes away from the mesosalpinx.? The utero-ovarian artery was burned and ligated followed by dissection of the round ligament with the Powerseal device.? This was repeated on the contralateral side.? The left round ligament was divided using Powerseal in tandem with blunt and sharp dissection of the broad ligament down to the level of the uterine artery. The uterine artery was then skeletonized after development of a bladder flap, coagulated, and divided. Once hemostasis was assured on the left side attention was turned to the right and the round and broad ligament were dissected in a fashion exactly the same as it had been on the left. The right uterine artery was then visualized after skeletonization and coagulated and divided. The uterus was seen to bob after coagulation of both uterine arteries and the cup was identified through the vaginal muscularis at its insertion with the body of the cervix. Using the monopolar hook on pure cut energy colpotomy within the groove of the V-care device. The amputated cervix, uterus and bilateral fallopian tubes were then removed via the vagina. The large weighted speculum was placed in the vagina. The uterosacral ligaments were grasped using long-allis clamps and the cuff was closed in a running fashion with 0-vicryl with creation of modified Jenkins culdoplasty. With closure of the cuff there was scant appreciable anterior laxity and decision was made to proceed with posterior repair only. Fire Prevention Specialist Dr. Fisher repeated laparoscopy at this time in tandem with Dr. Ahuja who was also present secondary to expertise in urogynecology and pelvic floor repair. All wound beds were inspected and noted to be hemostatic. All clot was evacuated using suction irrigation. The posterior vaginal mucosa was infiltrated with 15ml of 0.25% bupivicaine with epinephrine.? A V-incision was made at the posterior fourchette.? The posterior vaginal mucosa was incised vertically from hymen to 3cm distal to vaginal cuff and the mucosa was dissected off the endopelvic fascia.? Rectal exam performed delineating borders of defect; glove changed.? The posterior endopelvic fascia was then serially plicated using 0 vicryl with reduction of the rectocele.? The excess vaginal mucosa was then trimmed and reapproximated using 2-0 vicryl in a running fashion.? Rectal exam was once again performed confirming absence of suture within the rectal mucosa and satisfactory repair of the defect. Moistened vaginal packing placed. All counts were correct x2.? All instruments were removed from the vagina.? The patient had her legs taken out of stirrups and was awoken from anesthesia, extubated and taken to PACU in stable condition. Complications: none Post-operative Condition: stable Disposition: PACU
[2025-09-27] MEDS: LACTATED RINGERS 1,000 ML 70 ML IV ×2 (18:21→20:43)
[2025-09-27] MEDS: DOCUSATE 100 MG CAPSULE 200 MG PO (20:40)
[2025-09-27] MEDS: ACETAMINOPHEN 325 MG TABLET 650 MG PO (22:33)
[2025-09-27] MEDS: KETOROLAC 30 MG/ML VIAL IV (22:34)
[2025-09-28] MEDS: ACETAMINOPHEN 325 MG TABLET 650 MG PO ×2 (04:40→10:20)
[2025-09-28] MEDS: KETOROLAC 30 MG/ML VIAL IV (04:47)
[2025-09-28 06:49] LABS: Add Manual Diff / Slide Review NO; Hematocrit 32.5 % (36-46); Hemoglobin 11.0 g/dL (12.0-16.0); Lymphocytes Absolute Auto 600 /uL (1100-4500); Mean Corpuscular HGB Conc 33.8 % (30-36); Mean Corpuscular Hemoglobin 33.3 PG (26-34); Mean Corpuscular Volume 98.4 fL (80-100); Platelet Count 273 X10^3/uL (150-400)
--- NOTE | 2025-09-28 08:02 | P.DS_ITS ---
History of Present Illness History of Present Illness Date Patient Seen: 09/28/25 Time Patient Seen: 07:30 Date of Onset of Symptoms: 09/27/25 Chief complaint: [employer] postop Narrative: POD1 s/p TLH/BS with posterior repair. Patient states severe headache o/n with acute on chronic L hip pain. Typically uses lidocaine patches at home for latter. Denies n/v, +flatus. Tolerating full PO, pain well controlled with limited PO analgesia. Urinary catheter and vaginal packing removed at bedside per MD this AM. Discharge Providers Provider Date of admission: 09/27/25 Discharge Date: 09/28/25 Primary care physician: Miriam Hernandez DO Discharge provider: Keara Berg MD Summary Hospital Course Discharge Diagnosis: s/p TLH/BS with posterior vaginal repair Hospital Course: 45yo perimenopausal female with long-standing symptomatic POP presented to facility for scheduled definitive surgical management with laparoscopic hysterectomy/bilateral salpingectomy with posterior repair. Patient underwent procedure without complication, EBL 100. Patient had uncomplicated postoperative course and was meeting all discharge milestones on AM of POD1. Patient discharged to home POD1 with strict bleeding/pain/activity restriction precautions, routine f/u in office 2wks as scheduled. Status at Discharge Cognitive/behavioral status at discharge: oriented Functional status at discharge: independent ambulation Overall status at discharge: patient is back to baseline Time Spent with Patient Time spent: Less than 30 minutes Exam Vital Signs (past 8 hours): Oxygen Delivery Method Room Air Oxygen Flow Rate 0 Const General: cooperative, comfortable and well developed Nutritional Appearance: average body habitus Orientation: alert, awake and oriented x3 Limitations: mental status not altered Resp Effort & Inspection: normal respiratory effort and able to speak in complete sentences Cardio Pulses: normal peripheral pulses GI Inspection: normal to inspection Palpation: soft Other: laparoscopic trocar incisions with dermabond in place, no erythema, mild appropriate postoperative tenderness without rebound/guarding Other: urinary troncoso discontinued (400cc in bag) vaginal packing removed, ~30% saturated without active bleeding Skin General: no rashes or lesions noted Neuro General: patient alert, patient awake and patient oriented x3 Extrem General: normal to inspection Psych Mental Status: mental status grossly normal Judgment: judgment good Objective Labs 09/28/25 06:35 Labs: Laboratory Results - last 24 hr 09/28/25 06:35 WBC 12.5 H RBC 3.30 L Hgb 11.0 L Hct 32.5 L MCV 98.4 MCH 33.3 MCHC 33.8 RDW 14.5 Plt Count 273 Neut % (Auto) 89.2 H Lymph % (Auto) 5.1 L [place] % (Auto) 4.8 Eos % (Auto) 0.0 L Baso % (Auto) 0.9 Neut # (Auto) 55840 H Lymph # (Auto) 600 L [place] # (Auto) 600 Eos # (Auto) 0 Baso # (Auto) 100 PFSH Medical History (Updated 09/09/25 @ 14:03 by Caterina Obrien, SHIKHA) Chronic pain syndrome [place] syndrome Hypothyroid Bipolar disorder GERD (gastroesophageal reflux disease) Prolapse of female pelvic organs Disability Acne (~1989) Sleep apnea (~2014) Allergies (~2014) Depression (~2003) Migraines Headache ADHD (~2011) Shoulder pain Fractures (~2008) Foot pain (~1996) Fibromyalgia (~2014) Chronic back pain (~1996) Carpal tunnel syndrome (~2018) Ankle pain (~1996) Chicken pox (~1984) Anemia (~2019) Tinnitus (~1999) Recurrent sinusitis (~1997) Painful menstrual periods Irregular menstrual cycle (~2019) Herpes (~1997) Heavy menstrual period (~2019) Chlamydia (~1997) Abnormal Pap smear of cervix Frequent UTI Irritable bowel syndrome Abnormal uterine bleeding (AUB) Rectocele History of kidney stones Borderline personality disorder SVT (supraventricular tachycardia) (~2017) Surgical History Anesthesia History of shoulder surgery (~2020) Lipoma of neck (~2019) Kidney stones History of carpal tunnel release History of delivery (~03/2007) H/O breast surgery (~2000) History of tonsillectomy (~2008) History of back surgery Family History Sister Suicide Grandfather Mental health problem Social History household members: children Smoking Status: Current some day smoker alcohol intake: never Discharge Assessment & Plan Assessment and Plan Assessment: 45yo perimenopausal female, POD1 s/p TLH/BS with posterior vaginal repair Postop +ROBF, pain well controlled with minimal PO analgesia pt to start bowel regimen at discharge to minimize straining for stool rx for transdermal E2 at discharge, discontinue prior GINNY for hormone therapy strict bleeding/pain/infectious precautions reviewed strict activity restrictions reviewed dispo: dc, routine 2wk postop f/u in office as scheduled Discharge Plan Discharge Plan Patient Disposition: Home Provider Discharge Comment: Nothing in the vagina for 6 weeks. No tampons, intercourse, douching, swimming in fresh water/pools/hot tubs. Tub baths are ok if the tub is cleaned well first. NO HEAVY LIFTING (greater than 10-15lbs) for six weeks. This is to protect the vaginal incisions. If any concerns please call the office at [phone]. Discharge orders & Medications Discharge Orders: Discharge (Order); Ordered 09/28/25 Ordered By: Keara Berg Prescriptions: New estradiol [Vivelle-Dot] 0.05 mg/24 hr patch semiweekly 1 patch transdermal 2XW Qty: 8 3RF Rx Instructions: apply 1 patch for 3 days alternating with 1 patch for 4 days each week sennosides [Senna Lax] 8.6 mg tablet 8.6 mg PO BID PRN (Reason: constipation) Qty: 60 0RF Continued atorvastatin 40 mg tablet 40 mg PO DAILY valacyclovir 1 gram tablet 1,000 mg PO DAILY hydrocodone-acetaminophen 7.5-325 mg tablet 1 tab PO Q6H PRN (Reason: pain) hyoscyamine sulfate 0.125 mg tablet 0.25 mg PO 4XD PRN (Reason: muscle spasm) calcitriol 0.5 mcg capsule 0.5 mcg PO DAILY ibuprofen 600 mg tablet 600 mg PO 4XD escitalopram oxalate 10 mg tablet 10 mg PO DAILY ferrous sulfate 324 mg (65 mg iron) tablet,delayed release (DR/EC) 324 mg PO DAILY lidocaine 5 % ointment topical hydroxyzine pamoate 25 mg capsule 50 mg PO BID levothyroxine 50 mcg tablet 50 mcg PO DAILY tamsulosin 0.4 mg capsule 0.4 mg PO DAILY dextroamphetamine-amphetamine 15 mg tablet 15 mg PO TID lamotrigine 100 mg tablet 25 mg PO DAILY tamsulosin [Flomax] 0.4 mg capsule 0.4 mg PO DAILY Qty: 30 0RF cefpodoxime 200 mg tablet 200 mg PO Q12H Qty: 20 0RF Rx Instructions: must administer with a meal/food Zepbound 12.5 mg/0.5 mL pen injector 12.5 mg SUBCUT .q week Patient Comments: [NO ORIGINAL SIG] duloxetine [Cymbalta] 30 mg Capsule,Delayed Release(Dr/Ec) 30 mg PO BID cyclobenzaprine [Flexeril] 10 mg Tablet 10 mg PO TID PRN (Reason: Muscle Pain) rizatriptan [Maxalt] 10 mg Tablet 10 mg PO Q2-4H PRN (Reason: Migraine Headache) azelastine-fluticasone [Dymista] 137-50 mcg/spray [place],Non-Aerosol 1 spray INTRANASAL BID ondansetron HCl 4 mg tablet 4 mg PO Q6H PRN (Reason: nausea and vomiting) Qty: 7 0RF ondansetron 8 mg tablet,disintegrating 8 mg PO Q8H Qty: 14 0RF Discontinued norgestimate-ethinyl estradiol [Fuf-Ip-Ogtrfn] 0.18/0.215/0.25 mg-0.025 mg tablet 1 tab PO DAILY Follow up/Referrals: Miriam Hernandez DO [Primary Care Provider, Medical] Keara Berg MD [Physician, GENERAL OFFICE ASSISTANT] Diet/Activity/Treatments Diet: Diet as Tolerated and Regular Activity: No heavy lifting greater than 10-15lbs for 2 weeks Skin/Wound/Dressing Care Report to your healthcare provider any signs of infection, such as:: chills, fever, increased pain, unusual drainage and unusual redness Dressing: There is skin glue (dermabond) over your incisions. You may bathe/shower normally. You may use additional band-aids for comfort but they are not medically necessary. Visit Report/Discharge Packet Stand Alone Forms: Patient Portal/API, Surgery Discharge Print Language: Citizen [place] Discharge Data Primary Care Provider: Miriam Hernandez Attending Provider: Keara Berg VTE Deep Vein Thrombosis/Pulmonary Embolism Present on Admission: No IH PROFEE Charge Codes Discharge inpatient/observation: [id number]
--- NOTE | 2025-09-28 08:33 | CM.DANOTE ---
DCP Assessment Note: Pt is a 45yo female, resident of [place], is admitted s/p TLH/BS with posterior vaginal repair. Pt lives in a house with her and children. Pt's Primary Care Provider is Dr. Miriam Hernandez at [facility] and insurance is [employer]. Reviewed chart and discussed with multidisciplinary team pt's medical status and initial discharge needs. Per Provider, pt cleared to discharge home with family. Pre-Op Note states there was a plan for patient to discharge home in the morning with to transport. No dc needs identified. Plan: Anticipating discharge home with spouse to transport on 09/28 or when medically cleared. CM team will follow closely for coordination of discharge plans. Isi Bermudez [facility] Discharge Planning/Care Management CM Discharge Assessment Start: 09/27/25 13:08 Freq: Status: Active Protocol: Document 09/28/25 08:31 MW (Rec: 09/28/25 08:33 MW Desktop) Discharge Planning Assessment Assigned Discharge VARGHESE Snowden Phlebotomist Prn Provider Dr. Miriam Hernandez, DO ([facility]) Insurance DPOA/Assigned Db Joseph, Spouse Designee Name Contact Information [phone] Advance Directives? No History Provided By Patient Has Patient been No admitted in last 30 days? Prior Living House Arrangements Household Members spouse,children Independent with ADL Yes 's Is patient alert and Yes oriented? Review Status In Process Please Provide Date 09/28/25 Initial DC Assessment Was Performed Next Review Type Continued Stay Review
[2025-09-28] MEDS: DOCUSATE 100 MG CAPSULE 200 MG PO (10:19)
--- NOTE | 2025-09-28 16:32 | PC.NURSE ---
Discharge: Pt feels ready to d/c to home. Has tolerated her diet w/out problems. d/c troncoso and took out vag packing. She has a spotty vag flow. No clots. She tolerated diet. No need of narcotics. Has been up and amb in the hallways. Has voided 200ml UOP. Then voided one other time. Spouse present at time of d/c. Feels ready to go home. Discharge packet reviewed. She knows her rx has been esent. Questions answered. Pt d/c to home via auto with spouse.
== END 2025-09-28 10:46 | disposition home or self-care (01) ==
LOC: OR 13:07 → AC 13:07
PROVIDERS: PCP Family Medicine; Referring Provider Obstetrics & Gynecology; Visit Provider Obstetrics & Gynecology
PROC: 0UT9FZZ Resection of Uterus, Via Natural or Artificial Opening With Percutaneous Endoscopic Assistance (ICD-10-PCS; CPT 58550; principal; 2025-09-27 14:30)
PROC: (CPT 58550; 2025-09-27 14:30)
DX: N81.9 Female genital prolapse, unspecified (principal); N81.6 Rectocele; E03.9 Hypothyroidism, unspecified; F31.9 Bipolar disorder, unspecified; K21.9 Gastro-esophageal reflux disease without esophagitis; M79.7 Fibromyalgia; N81.83 Incompetence or weakening of rectovaginal tissue; G47.33 Obstructive sleep apnea (adult) (pediatric); F90.9 Attention-deficit hyperactivity disorder, unspecified type; F60.3 Borderline personality disorder; Z87.891 Personal history of nicotine dependence; N72 Inflammatory disease of cervix uteri; D25.1 Intramural leiomyoma of uterus; N83.8 Other noninflammatory disorders of ovary, fallopian tube and broad ligament
CPT/HCPCS: 58550; 57250; 36415; 85025; J0131; J0330; J0689; J1100; J1171; J1885; J2405; J3010; J3490; J7120

== ENCOUNTER 2025-10-19 12:26 | Emergency (ER) | payer OTHER, SELFPAY ==
[2025-09-27 13:08] VITALS: BMI 26.6
[2025-10-19 12:49] VITALS: BP 103/76; PULSE 124; RESP 16; TEMP 35.9; O2SAT 100; BMI 25.0
--- NOTE | 2025-10-19 12:52 | ED.FEMALEGU ---
HPI - Female Genitourinary General Chief complaint: Vaginal Bleeding Stated complaint: Excesive Bleeding Post op historectomy. Time Seen by Provider: 10/19/25 12:51 Source: patient Mode of arrival: Wheelchair History of Present Illness HPI Narrative: Patient is status post hysterectomy September 27, 2025 Dr. Coffman, at this hospital for stage II posterior prolapse stage I uterine prolapse. Has been doing well until last 24 hours has had a lot of vaginal bleeding. Has had cramping. Nonradiating. Has been dizzy. Is tachycardic. Blood pressure slightly lower than baseline. Patient gets dizzy when standing up. Changing a pad each hour. Some with clots. Patient isn't on blood thinners. Has history of iron deficient anemia. No prior history of blood transfusions. Related Data Home Medications ?Medication ?Instructions ?Recorded ?Confirmed dextroamphetamine-amphetamine 15 15 mg PO TID 11/12/18 10/12/25 mg tablet lamotrigine 100 mg tablet 25 mg PO DAILY 11/12/18 10/12/25 levothyroxine 50 mcg tablet 50 mcg PO DAILY 09/28/20 10/12/25 tamsulosin 0.4 mg capsule 0.4 mg PO DAILY 09/28/20 10/12/25 azelastine 137 mcg-fluticasone 50 1 spray intranasal BID 10/18/20 10/12/25 mcg/spray nasal spray (Dymista) cyclobenzaprine 10 mg tablet 10 mg PO TID PRN Muscle Pain 10/18/20 10/12/25 duloxetine 30 mg capsule,delayed 30 mg PO BID 10/18/20 10/12/25 release (Cymbalta) rizatriptan 10 mg tablet (Maxalt) 10 mg PO Q2-4H PRN Migraine 10/18/20 10/12/25 Headache hydroxyzine pamoate 25 mg capsule 50 mg PO BID 03/25/24 10/12/25 lidocaine 5 % topical ointment topical 03/25/24 10/12/25 tirzepatide (weight loss) 12.5 12.5 mg SUBCUT .q week 09/09/25 10/12/25 mg/0.5 mL subcutaneous pen injector (Zepbound) atorvastatin 40 mg tablet 40 mg PO DAILY 09/14/25 10/12/25 calcitriol 0.5 mcg capsule 0.5 mcg PO DAILY 09/14/25 09/14/25 escitalopram oxalate 10 mg tablet 10 mg PO DAILY 09/14/25 10/12/25 ferrous sulfate 324 mg (65 mg 324 mg PO DAILY 09/14/25 10/12/25 iron) tablet,delayed release hydrocodone 7.5 mg-acetaminophen 1 tab PO Q6H PRN pain 09/14/25 10/12/25 325 mg tablet hyoscyamine sulfate 0.125 mg tablet 0.25 mg PO 4XD PRN muscle spasm 09/14/25 10/12/25 ibuprofen 600 mg tablet 600 mg PO 4XD 09/14/25 10/12/25 valacyclovir 1 gram tablet 1,000 mg PO DAILY 09/14/25 10/12/25 Previous Rx's ?Medication ?Instructions ?Recorded ondansetron HCl 4 mg tablet 4 mg PO Q6H PRN nausea and 03/14/24 vomiting #7 tabs tamsulosin 0.4 mg capsule (Flomax) 0.4 mg PO DAILY #30 caps 06/02/24 ondansetron 8 mg disintegrating 8 mg PO Q8H #14 tabs 09/24/24 tablet estradiol 0.05 mg/24 hr semiweekly 1 patch transdermal 2XW #8 ea 09/28/25 transdermal patch (Vivelle-Dot) sennosides 8.6 mg tablet (Senna 8.6 mg PO BID PRN constipation #60 09/28/25 Lax) tabs lactulose 10 gram/15 mL oral 30 ml PO BID #473 mL 10/19/25 solution Allergies Allergy/AdvReac Type Severity Reaction Status Date / Time No Known Drug Allergies Allergy Verified 10/12/25 11:11 Review of Systems Review of Systems Narrative: GENERAL: Negative chills, fatigue, malaise, fever, sweats. HEENT: Negative sinus pain, ear pain, sore throat RESPIRATORY: Negative dyspnea, cough CARDIOVASCULAR: Negative chest pain, palpitations GASTROINTESTINAL: Negative vomiting, nausea, positive abdominal pain : Negative dysuria, frequency, hematuria, positive vaginal bleeding MUSCULOSKELETAL: Negative muscle or bony pain SKIN: Negative rash, skin lesions NEUROLOGIC: Negative weakness, numbness positive dizzy ROS Unobtainable: All systems reviewed & are unremarkable except as noted in HPI and below Patient History Medical History (Updated 10/19/25 @ 14:36 by Keara Coffman MD) Postoperative hematoma Chronic pain syndrome [place] syndrome Hypothyroid Bipolar disorder GERD (gastroesophageal reflux disease) Prolapse of female pelvic organs Disability Acne (~1989) Sleep apnea (~2014) Allergies (~2014) Depression (~2003) Migraines Headache ADHD (~2011) Shoulder pain Fractures (~2008) Foot pain (~1996) Fibromyalgia (~2014) Chronic back pain (~1996) Carpal tunnel syndrome (~2018) Ankle pain (~1996) Chicken pox (~1984) Anemia (~2019) Tinnitus (~1999) Recurrent sinusitis (~1997) Painful menstrual periods Irregular menstrual cycle (~2019) Herpes (~1997) Heavy menstrual period (~2019) Chlamydia (~1997) Abnormal Pap smear of cervix Frequent UTI Irritable bowel syndrome Abnormal uterine bleeding (AUB) Rectocele History of kidney stones Borderline personality disorder SVT (supraventricular tachycardia) (~2017) Surgical History Anesthesia History of shoulder surgery (~2020) Lipoma of neck (~2019) Kidney stones History of carpal tunnel release History of delivery (~03/2007) H/O breast surgery (~2000) History of tonsillectomy (~2008) History of back surgery Family History Sister Suicide Grandfather Mental health problem tobacco type: smokeless tobacco Exam Narrative Exam Narrative: GENERAL: in no distress, not toxic not dyspneic HEAD: Normocephalic. EYES: Pupils equal round pale conjunctiva ENT: Mucous membranes moist. NECK: Trachea midline. CARDIOVASCULAR: Regular rate and rhythm capillary refill 3-5 seconds RESPIRATORY: Clear to auscultation. Breath sounds equal bilaterally. No wheezes, rales, or rhonchi. GASTROINTESTINAL: Abdomen soft, nontender abdomen no peritoneal signs no guarding or rebound. No CVA tenderness BACK: No flank tenderness. EXTREMITIES: No gross deformities. NEURO: AOx4. Clear speech SKIN: Warm and dry PSYCH: Not anxious, is cooperative Initial Vital Signs Initial Vital Signs: Vital Signs Temperature 96.7 F L 10/19/25 12:49 Pulse Rate 124 H 10/19/25 12:49 Respiratory Rate 16 10/19/25 12:49 Blood Pressure 103/76 10/19/25 12:49 Pulse Oximetry 100 10/19/25 12:49 Oxygen Delivery Method Room Air 10/19/25 12:49 Course Orders Ordered: ED Orders 10/19/25 12:55 CT abdomen pelvis w con Stat 10/19/25 13:02 CBC Auto Diff [Complete Blood Count AUTO DIFF] Stat CMP [Comprehensive Metabolic Panel] Stat PT [Prothrombin Time INR] Stat PTT Partial Thromboplastin Yemi Stat Type and Screen Stat Discontinued Medications Tranexamic Acid 1,000 mg/ (Sodium Chloride) 100 mls @ 200 mls/hr IV NOW ONE Stop: 10/19/25 13:24 Last Infusion: 10/19/25 14:25 Dose: Infused Documented By: Admin: 10/19/25 13:47 Dose: 200 mls/hr Documented By: BJ Vital Signs Vital signs: Vital Signs - 8 hr 10/19/25 12:49 10/19/25 13:52 10/19/25 13:58 Temperature 96.7 F L Pulse Rate 124 H 99 H Respiratory Rate 16 Blood Pressure 103/76 112/80 Pulse Oximetry 100 98 Oxygen Delivery Method Room Air 10/19/25 13:58 10/19/25 14:00 10/19/25 14:00 Temperature Pulse Rate 100 H 97 H Respiratory Rate 14 21 Blood Pressure 123/78 Pulse Oximetry 99 99 Oxygen Delivery Method Room Air 10/19/25 14:30 10/19/25 14:30 Temperature Pulse Rate 98 H Respiratory Rate 21 Blood Pressure 121/80 Pulse Oximetry 99 Oxygen Delivery Method Room Air MDM - Female Genitourinary Lab Data 10/19/25 13:02 10/19/25 13:02 Labs: Lab Results 10/19/25 Range/Units 13:02 WBC 8.2 (4.5-11.0) X10^3/uL RBC 3.64 L (4.0-5.2) X10^6/uL Hgb 12.0 (12.0-16.0) g/dL Hct 35.3 L (36-46) % MCV 96.8 (80-100) fL MCH 32.9 (26-34) PG MCHC 34.0 (30-36) % RDW 13.1 (11.6-14.8) % Plt Count 405 H (150-400) X10^3/uL Neut % (Auto) 60.1 (50-75) % Lymph % (Auto) 28.1 (25-40) % [place] % (Auto) 8.5 (3-14) % Eos % (Auto) 2.1 (2-4) % Baso % (Auto) 1.2 (0-2) % Neut # (Auto) 5000 (4831-3512) /uL Lymph # (Auto) 2300 (7886-4598) /uL [place] # (Auto) 700 (0-900) /uL Eos # (Auto) 200 (0-450) /uL Baso # (Auto) 100 (0-100) /uL PT 11.0 (9.4-12.5) SECONDS INR 1.0 (0.9-1.3) APTT 28 (25.1-36.5) SECONDS Sodium 137 (137-145) mmol/L Potassium 3.8 (3.4-5.1) mmol/L Chloride 98 (98-107) mmol/L Carbon Dioxide 32 (22-32) mmol/L BUN 24 H (7-17) mg/dL Creatinine 0.78 (0.52-1.04) mg/dL Estimated GFR > 60 (>60) mL/min BUN/Creatinine Ratio 30.8 H (6-22) Glucose 94 (70-99) mg/dL Calcium 9.3 (8.4-10.2) mg/dL Total Bilirubin 0.3 (0.2-1.3) mg/dL AST 24 (14-36) IU/L ALT 18 (<35) IU/L Alkaline Phosphatase 77 (38-126) U/L Total Protein 6.5 (6.3-8.2) g/dL Albumin 3.9 (3.5-5.0) g/dL Globulin 2.6 (1.7-4.1) g/dL Albumin/Globulin Ratio 1.5 (1.0-2.8) Blood Type O Positive Antibody Screen Negative Imaging Data CT scan - abdomen/pelvis: Radiologist's Impression: [address] [address] [address] Scan Report Signed Patient: Kavitha Ruiz MR#: [id number] : 1980 Acct:[id number] Age/Sex: 45 / F Date of Service: 10/19/25 Loc: ED Accession Number: [id number] Procedure: CT abdomen pelvis w con Ordering Provider: Tommy Lo MD PROCEDURE: CT ABDOMEN PELVIS W CON INDICATIONS: Pelvic pain - post hysterectomy TECHNIQUE: After the administration of intravenous contrast, axial sections acquired from the lung bases to the pubic symphysis. Coronal and sagittal reformats were performed. For radiation dose reduction, the following was used: automated exposure control, adjustment of mA and/or kV according to patient size. COMPARISON: [facility], CT, CT KIDNEY URETER BLADDER (KUB), 09/24/2024, 2:15. [facility], CT, CT ABDOMEN PELVIS W CON, 03/14/2024, 19:40. FINDINGS: Image quality: Diagnostic. Lower Chest: No significant findings. Bilateral breast implants. ABDOMEN: Liver: No solid mass. Gallbladder: No radiopaque gallstones or wall thickening. Biliary ducts: No biliary dilation. Pancreas: No ductal dilation. Spleen: Size is within normal limits. Adrenal Glands: No adrenal nodules. Kidneys and Ureters: No hydronephrosis. No solid mass. No complex renal cystic lesion which requires follow up. Stomach and Bowel: Normal colonic caliber, without significant wall thickening. Minimal diverticula without inflammatory change. Peritoneum: Trace dependent pelvic fluid. No free air. Ventral Wall: No significant ventral hernia. Abdominal Nodes: No retroperitoneal or mesenteric adenopathy by size criteria. Vessels: Aorta and inferior vena cava are normal in size. PELVIS: Pelvic Organs: Surgical changes reflecting hysterectomy. Between the vaginal cuff and rectum there is an air and fluid collection measuring 6.0 x 7.0 cm. Bladder: No bladder wall thickening, accounting for underdistention. Pelvic Nodes: No enlarged lymph nodes. Miscellaneous: No inguinal hernias are seen. Bones: No aggressive osseous abnormality. Posterior fusion at L4-5. IMPRESSION: Surgical changes reflecting hysterectomy with appearance of abscess at the surgical site as above. Dictated by: Joslyn Busby M.D. on 10/19/2025 at 14:05 Approved by: Joslyn Busby M.D. on 10/19/2025 at 14:08 [facility] Narrative Medical decision making narrative: Patient is status post hysterectomy September 27, 2025 Dr. Coffman, at this hospital for stage II posterior prolapse stage I uterine prolapse. Has been doing well until last 24 hours has had a lot of vaginal bleeding. Has had cramping. Nonradiating. Has been dizzy. Is tachycardic. Blood pressure slightly lower than baseline. Patient gets dizzy when standing up. Changing a pad each hour. Some with clots. Patient isn't on blood thinners. Has history of iron deficient anemia. No prior history of blood transfusions. MDM After history and exam, industrial illuminating engineer consult, Tx a, CBC CMP PT INR type and screen, possible transfusion, CT abdomen pelvis, Differential considered: Includes but not limited to postoperative bleed Medical records reviewed: September 27, 2025 operative notes here. Lab Test results independently reviewed as above. Pertinent findings: WBC 8.2 hemoglobin 12 hematocrit 35 platelets 405 INR 1.0 BUN 24 creatinine 0.78 AST 24 ALT 18 Imaging studies independently reviewed: CT abdomen pelvis no acute finding Consultations: 2:00 p.m.. Patient is OBGYN provider here in the emergency department to see patient and evaluate/exam patient, Dr coffman, she has reviewed patient's results and patient can be discharged home and follow up in her office. She would like prescription for lactulose for constipation. She has examined patient and this is not an abscess on the CT imaging. Re-evaluations: Reviewed with patient and family results. Return precautions reviewed. They desire discharge home. Discussion: IV contrast used for CT imaging. Appropriate for discharge home exam is reassuring laboratory studies reassuring patient is OBGYN provided outpatient here in the department. Diagnosis: Postoperative bleeding Discharge Plan Departure Patient Disposition: Home Clinical Impression: Blood loss, postoperative Qualifiers: Surgical complication system/body Area: genitourinary Procedure type: genitourinary Qualified Code(s): N99.820 - Postprocedural hemorrhage of a genitourinary system organ or structure following a genitourinary system procedure Instructions: DI for Vaginal Bleeding Activity Restrictions/Additional Instructions: Your laboratory studies imaging studies are reassuring. Your OBGYN provider seeing you here in the department. Please follow up with her office as instructed by her. Return if worse if any questions or concerns. Prescriptions: New lactulose 10 gram/15 mL solution 30 ml PO BID Qty: 473 0RF Rx Instructions: Titrate for soft stools No Action atorvastatin 40 mg tablet 40 mg PO DAILY valacyclovir 1 gram tablet 1,000 mg PO DAILY hydrocodone-acetaminophen 7.5-325 mg tablet 1 tab PO Q6H PRN (Reason: pain) hyoscyamine sulfate 0.125 mg tablet 0.25 mg PO 4XD PRN (Reason: muscle spasm) calcitriol 0.5 mcg capsule 0.5 mcg PO DAILY ibuprofen 600 mg tablet 600 mg PO 4XD escitalopram oxalate 10 mg tablet 10 mg PO DAILY ferrous sulfate 324 mg (65 mg iron) tablet,delayed release (DR/EC) 324 mg PO DAILY lidocaine 5 % ointment topical hydroxyzine pamoate 25 mg capsule 50 mg PO BID levothyroxine 50 mcg tablet 50 mcg PO DAILY tamsulosin 0.4 mg capsule 0.4 mg PO DAILY dextroamphetamine-amphetamine 15 mg tablet 15 mg PO TID lamotrigine 100 mg tablet 25 mg PO DAILY tamsulosin [Flomax] 0.4 mg capsule 0.4 mg PO DAILY Qty: 30 0RF Zepbound 12.5 mg/0.5 mL pen injector 12.5 mg SUBCUT .q week Patient Comments: [NO ORIGINAL SIG] estradiol [Vivelle-Dot] 0.05 mg/24 hr patch semiweekly 1 patch transdermal 2XW Qty: 8 3RF Rx Instructions: apply 1 patch for 3 days alternating with 1 patch for 4 days each week sennosides [Senna Lax] 8.6 mg tablet 8.6 mg PO BID PRN (Reason: constipation) Qty: 60 0RF duloxetine [Cymbalta] 30 mg Capsule,Delayed Release(Dr/Ec) 30 mg PO BID cyclobenzaprine 10 mg Tablet 10 mg PO TID PRN (Reason: Muscle Pain) rizatriptan [Maxalt] 10 mg Tablet 10 mg PO Q2-4H PRN (Reason: Migraine Headache) azelastine-fluticasone [Dymista] 137-50 mcg/spray [place],Non-Aerosol 1 spray INTRANASAL BID ondansetron HCl 4 mg tablet 4 mg PO Q6H PRN (Reason: nausea and vomiting) Qty: 7 0RF ondansetron 8 mg tablet,disintegrating 8 mg PO Q8H Qty: 14 0RF Referrals: Miriam Hernandez DO [Primary Care Provider, Medical] Stand Alone Forms: Patient Portal/API
--- NOTE | 2025-10-19 12:55 | DI.CT.S_ITS ---
PROCEDURE: CT ABDOMEN PELVIS W CON INDICATIONS: Pelvic pain - post hysterectomy TECHNIQUE: After the administration of intravenous contrast, axial sections acquired from the lung bases to the pubic symphysis. Coronal and sagittal reformats were performed. For radiation dose reduction, the following was used: automated exposure control, adjustment of mA and/or kV according to patient size. COMPARISON: [facility], CT, CT KIDNEY URETER BLADDER (KUB), 09/24/2024, 2:15. [facility], CT, CT ABDOMEN PELVIS W CON, 03/14/2024, 19:40. FINDINGS: Image quality: Diagnostic. Lower Chest: No significant findings. Bilateral breast implants. ABDOMEN: Liver: No solid mass. Gallbladder: No radiopaque gallstones or wall thickening. Biliary ducts: No biliary dilation. Pancreas: No ductal dilation. Spleen: Size is within normal limits. Adrenal Glands: No adrenal nodules. Kidneys and Ureters: No hydronephrosis. No solid mass. No complex renal cystic lesion which requires follow up. Stomach and Bowel: Normal colonic caliber, without significant wall thickening. Minimal diverticula without inflammatory change. Peritoneum: Trace dependent pelvic fluid. No free air. Ventral Wall: No significant ventral hernia. Abdominal Nodes: No retroperitoneal or mesenteric adenopathy by size criteria. Vessels: Aorta and inferior vena cava are normal in size. PELVIS: Pelvic Organs: Surgical changes reflecting hysterectomy. Between the vaginal cuff and rectum there is an air and fluid collection measuring 6.0 x 7.0 cm. Bladder: No bladder wall thickening, accounting for underdistention. Pelvic Nodes: No enlarged lymph nodes. Miscellaneous: No inguinal hernias are seen. Bones: No aggressive osseous abnormality. Posterior fusion at L4-5. IMPRESSION: Surgical changes reflecting hysterectomy with appearance of abscess at the surgical site as above. Dictated by: Joslyn Busby M.D. on 10/19/2025 at 14:05 Approved by: Joslyn Busby M.D. on 10/19/2025 at 14:08
[2025-10-19 13:11] LABS: Add Manual Diff / Slide Review NO; Hematocrit 35.3 % (36-46); Hemoglobin 12.0 g/dL (12.0-16.0); Lymphocytes Absolute Auto 2300 /uL (1100-4500); Mean Corpuscular HGB Conc 34.0 % (30-36); Mean Corpuscular Hemoglobin 32.9 PG (26-34); Mean Corpuscular Volume 96.8 fL (80-100); Platelet Count 405 X10^3/uL (150-400)
[2025-10-19 13:20] LABS: INR 1.0 (0.9-1.3); Prothrombin Time 11.0 SECONDS (9.4-12.5)
[2025-10-19 13:23] LABS: PTT Partial Thromboplastin Tim 28 SECONDS (25.1-36.5)
[2025-10-19 13:26] LABS: Alanine Aminotransferase 18 IU/L (<35); Albumin 3.9 g/dL (3.5-5.0); Albumin Globulin Ratio 1.5 (1.0-2.8); Alkaline Phosphatase 77 U/L (38-126); Blood Urea Nitrogen 24 mg/dL (7-17); Calcium 9.3 mg/dL (8.4-10.2); Carbon Dioxide 32 mmol/L (22-32); Chloride 98 mmol/L (98-107); Estimated Glomerular Filt Rate > 60 mL/min (>60); Globulin 2.6 g/dL (1.7-4.1); Glucose 94 mg/dL (70-99); HEMOLYSIS < 15 (0-50); Potassium 3.8 mmol/L (3.4-5.1); Sodium 137 mmol/L (137-145); Total Protein 6.5 g/dL (6.3-8.2)
[2025-10-19] MEDS: TRANEXAMIC ACID 1,000 MG in SODIUM CHLORIDE 0.9% 100 ML 200 MG IV (13:47)
[2025-10-19 13:52] VITALS: PULSE 99; O2SAT 98
[2025-10-19 13:58] VITALS: BP 112/80; PULSE 100; RESP 14; O2SAT 99
[2025-10-19 14:00] VITALS: BP 123/78; PULSE 97; RESP 21; O2SAT 99
--- NOTE | 2025-10-19 14:27 | P.CONS_ITS ---
History of Present Illness Consult details Date Patient Seen: 10/19/25 Time Patient Seen: 14:27 Chief complaint: Excesive Bleeding Post op historectomy. Reason for consult: s/p LAVH/BS with posterior repair 09/27/25 Narrative: 45yo s/p LAVH/BS with posterior repair 09/27/25 presents to ED after calling office with concerns of heavy vaginal bleeding x48h. Patient was seen in office 10/05 for routine postop assessment and endorsed scant serosanginous vaginal discharge at that time with mild odor. At time of that exam vaginal cuff was visually intact and palpated intact, posterior suture also intact. Patient states that over the weekend she began experiencing more consistent bleeding and in the last 24h has been saturating pads <1h with passage of large clots. While at home this morning she began to feel faint/lightheaded and called office and was instructed to present to ED for further evaluation. On arrival to ED pt was noted to have slight tachycardia without hypotension, h/h stable (12.0/35.3, previously 11/32.5 on POD1) with mild thrombocytosis (plt 405k), PT/aPTT/INR wnl, no leukocytosis. CT abd pelvis obtained that noted 7x5cm fluid collection vs abscess vs hematoma at level of the vaginal cuff. [employer] presented to ED for further evaluation. On my interview patient is resting comfortably. She states she is having some mild cramping but no distinct pain. She reports regular small bowel movements but does feel like there is a sensation of rectal fullness and has been performing enemas at home. Denies fever/chills, mild nausea with suspected orthostasis but tolerating full PO without difficulty. Meds Home Medications and Allergies Home Medications ?Medication ?Instructions ?Recorded ?Confirmed ?Type dextroamphetamine-amphetamine 15 15 mg PO TID 11/12/18 10/12/25 History mg tablet lamotrigine 100 mg tablet 25 mg PO DAILY 11/12/1807/29 History levothyroxine 50 mcg tablet 50 mcg PO DAILY 09/28/20 1 12/13/24 History tamsulosin 0.4 mg capsule 0.4 mg PO DAILY 09/28/2007/29 History azelastine 137 mcg-fluticasone 50 1 spray intranasal B ID 10/18/20 10/12/25 History mcg/spray nasal spray (Dymista) cyclobenzaprine 10 mg tablet 10 mg PO TID PRN Muscle P ain 10/18/20 10/12/25 History duloxetine 30 mg capsule,delayed 30 mg PO BID 10/18/20 10/12/25 History release (Cymbalta) rizatriptan 10 mg tablet (Maxalt) 10 mg PO Q2-4H PRN M igraine 10/18/20 10/12/25 History Headache ondansetron HCl 4 mg tablet 4 mg PO Q6H PRN nausea and 03/14/24 10/12/25 Rx vomiting #7 tabs hydroxyzine pamoate 25 mg capsule 50 mg PO BID 4 10/12/25 History lidocaine 5 % topical ointment topical 03/25/24 History tamsulosin 0.4 mg capsule (Flomax) 0.4 mg PO DAILY #30 caps 06/02/24 10/12/25 Rx ondansetron 8 mg disintegrating 8 mg PO Q8H #14 tabs 1 11/24/23 10/12/25 Rx tablet tirzepatide (weight loss) 12.5 12.5 mg SUBCUT .q week 09/09/25 10/12/25 History mg/0.5 mL subcutaneous pen injector (Zepbound) atorvastatin 40 mg tablet 40 mg PO DAILY 09/14/2507/29 History calcitriol 0.5 mcg capsule 0.5 mcg PO DAILY 09/14/25 1 11/14/24 History escitalopram oxalate 10 mg tablet 10 mg PO DAILY 09/1410/12/25 History ferrous sulfate 324 mg (65 mg 324 mg PO DAILY 09/14/25 10/12/25 History iron) tablet,delayed release hydrocodone 7.5 mg-acetaminophen 1 tab PO Q6H PRN pain 09/14/25 10/12/25 History 325 mg tablet hyoscyamine sulfate 0.125 mg tablet 0.25 mg PO 4XD PRN muscle spasm 09/14/25 10/12/25 History ibuprofen 600 mg tablet 600 mg PO 4XD 09/14/2510/12 History valacyclovir 1 gram tablet 1,000 mg PO DAILY 09/14/25 10/12/25 History estradiol 0.05 mg/24 hr semiweekly 1 patch transdermal 2XW #8 ea 09/28/25 10/12/25 Rx transdermal patch (Vivelle-Dot) sennosides 8.6 mg tablet (Senna 8.6 mg PO BID PRN cons tipation #60 09/28/25 10/12/25 Rx Lax) tabs lactulose 10 gram/15 mL oral 30 ml PO BID #473 mL 10/04 04/28 Rx solution Allergies Allergy/AdvReac Type Severity Reaction Status Date / Time No Known Drug Allergies Allergy Verified 10/12/25 11:11 Review of Systems Review of Systems ROS: Yes All systems reviewed with the patient and are negative except as otherwise documented Exam Vital Signs (past 8 hours): - 10/19/25 12:49 Temperature 96.7 F L Pulse Rate 124 H Respiratory Rate 16 Blood Pressure 103/76 Pulse Oximetry 100 Oxygen Delivery Method Room Air Oxygen Delivery Method Room Air Const General: cooperative, comfortable and well developed Nutritional Appearance: average body habitus Orientation: alert, awake and oriented x3 Limitations: mental status not altered Resp Effort & Inspection: normal respiratory effort and able to speak in complete sentences Cardio Pulses: normal peripheral pulses GI Palpation: soft Other: normal external female genitalia perineum and anus without rash or lesion urethral meatus wnl speculum placed with visualization of large 5x4cm clot at vaginal apex, cleared with scopettes without continued active bleeding cuff digitally palpates intact, non-tender Back/Spine/Pelvis Back: normal to inspection Skin General: no rashes or lesions noted Neuro General: patient alert, patient awake and patient oriented x3 Extrem General: normal to inspection Psych Mental Status: mental status grossly normal Judgment: judgment good Objective Labs 10/19/25 13:02 10/19/25 13:02 Labs: Laboratory Results - last 24 hr 10/19/25 13:02 WBC 8.2 RBC 3.64 L Hgb 12.0 Hct 35.3 L MCV 96.8 MCH 32.9 MCHC 34.0 RDW 13.1 Plt Count 405 H Neut % (Auto) 60.1 Lymph % (Auto) 28.1 [place] % (Auto) 8.5 Eos % (Auto) 2.1 Baso % (Auto) 1.2 Neut # (Auto) 5000 Lymph # (Auto) 2300 [place] # (Auto) 700 Eos # (Auto) 200 Baso # (Auto) 100 PT 11.0 INR 1.0 APTT 28 Sodium 137 Potassium 3.8 Chloride 98 Carbon Dioxide 32 BUN 24 H Creatinine 0.78 Estimated GFR > 60 BUN/Creatinine Ratio 30.8 H Glucose 94 Calcium 9.3 Total Bilirubin 0.3 AST 24 ALT 18 Alkaline Phosphatase 77 Total Protein 6.5 Albumin 3.9 Globulin 2.6 Albumin/Globulin Ratio 1.5 Blood Type O Positive Antibody Screen Negative [facility] Medical History (Updated 10/19/25 @ 14:36 by Keara Berg MD) Postoperative hematoma Chronic pain syndrome [place] War syndrome Hypothyroid Bipolar disorder GERD (gastroesophageal reflux disease) Prolapse of female pelvic organs Disability Acne (~1989) Sleep apnea (~2014) Allergies (~2014) Depression (~2003) Migraines Headache ADHD (~2011) Shoulder pain Fractures (~2008) Foot pain (~1996) Fibromyalgia (~2014) Chronic back pain (~1996) Carpal tunnel syndrome (~2018) Ankle pain (~1996) Chicken pox (~1984) Anemia (~2019) Tinnitus (~1999) Recurrent sinusitis (~1997) Painful menstrual periods Irregular menstrual cycle (~2019) Herpes (~1997) Heavy menstrual period (~2019) Chlamydia (~1997) Abnormal Pap smear of cervix Frequent UTI Irritable bowel syndrome Abnormal uterine bleeding (AUB) Rectocele History of kidney stones Borderline personality disorder SVT (supraventricular tachycardia) (~2017) Surgical History Anesthesia History of shoulder surgery (~2020) Lipoma of neck (~2019) Kidney stones History of carpal tunnel release History of delivery (~03/2007) H/O breast surgery (~2000) History of tonsillectomy (~2008) History of back surgery Family History Sister Suicide Grandfather Mental health problem Social History household members: spouse and children Tobacco & Substance Use alcohol intake: never Assessment & Plan Assessment and plan (1) Postoperative hematoma: Qualifiers: Surgical complication system/body Area: genitourinary Status: Acute Plan 45yo s/p LAVH/BS with posterior vaginal repair 09/27 presents to ED with 48h acute onset heavy vaginal bleeding, vaginal cuff hematoma Vaginal cuff hematoma actively draining afebrile, VSS without objective findings of superimposed infectious process bleeding minimal at time of exam s/p IV TXA strict interval precautions reviewed pt to be called with appointment for short interval f/u in office Time-Based Coding :: [TOTAL MINUTES] spent with patient and on the chart (including review of chart, obtaining history, exam, reviewing outside data, placing orders, documenting exam and treatment plan, and counseling patient) on [DATE]. PROFEE Charge Codes Inpatient or Observation consultation: 85387
[2025-10-19 14:30] VITALS: BP 121/80; PULSE 98; RESP 21; O2SAT 99
== END 2025-10-19 14:42 | disposition home or self-care (01) ==
PROVIDERS: Emergency Provider Emergency Medicine; PCP Family Medicine
DX: N99.820 Postprocedural hemorrhage of a genitourinary system organ or structure following a genitourinary system procedure (principal); Z87.42 Personal history of other diseases of the female genital tract
CPT/HCPCS: 36415; 74177; 80053; 85025; 85610; 85730; 86850; 86900; 86901; 96365; 99284; J7050; Q9967